=== PATIENT | female | born 1990 | race Caucasian/White ===

== ENCOUNTER 2017-10-15 14:59 | Emergency (ER) | payer OTHER ==
--- NOTE | 2017-10-15 15:42 | PDOC ---
History of Present Illness - General History Source: Patient Exam Limitations: No Limitations - History of Present Illness Initial Comments: 10/15/17 16:05 The patient is a 27 year old female with a significant PMH of chronic right shoulder pain, hypertension, hyperlipidemia, and colitis who presents to the emergency department after a dog bite on the right hand today. The patient describes the pain as moderate, persistent, and worse with movement. 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 The patient reports she has not had a recent tetanus shot. The patient denies any possibility for . The patient denies chest pain, shortness of breath, headache and dizziness. Denies fever, chills, nausea, vomit, diarrhea and constipation. Denies dysuria, frequency, urgency and hematuria. Allergies: NKA Past surgical history: None reported. Social history: No reported alcohol, drug or cigarette use. <Candace Ku - Last Filed: 10/15/17 17:20> <Alfredo Cabezas - Last Filed: 10/15/17 18:00> - General Chief Complaint: Bite Stated Complaint: DOG BITE OF RIGHT HAND Time Seen by Provider: 10/15/17 15:35 Past History <Candace Ku - Last Filed: 10/15/17 17:20> - Past Medical History COPD: No GI Disorders: Yes (COLITIS) HTN: Yes Hypercholesterolemia: Yes - Surgical History Abdominal Surgery: Yes (HERNIA) - Immunization History Td Vaccination: Yes Immunization Up to Date: Yes - Suicide/Smoking/Psychosocial Hx Smoking Status: No Smoking History: Never smoked Have you smoked in the past 12 months: No Number of Cigarettes Smoked Daily: 0 Hx Alcohol Use: No Drug/Substance Use Hx: No Substance Use Type: None <Alfredo Cabezas - Last Filed: 10/15/17 18:00> - Past Medical History Allergies/Adverse Reactions: Allergies Allergy/AdvReac Type Severity Reaction Status Date / Time No Known Allergies Allergy Verified 06/26/17 17:08 Home Medications: Ambulatory Orders Amoxicillin/Potassium Clav [Augmentin 875-125 Tablet] 1 each PO BID #20 tablet 10/15/17 Review of Systems - Review of Systems Able to Perform ROS?: Yes Comments:: 10/15/17 17:06 ROS: A complete review of 10 out of 10 review of systems is taken and is negative apart from what is previously mentioned below and in the HPI. <Candace Ku - Last Filed: 10/15/17 17:20> *Physical Exam - Physical Exam Comments: 10/15/17 17:06 Vitals: Triage vital signs reviewed General Appearance: No acute distress, well nourished, well developed Head: Atraumatic Neck: Supple; No nuchal rigidity Chest Wall: Nontender Cardiac: Regular rate and rhythm, no murmurs, no rubs, no gallops Lungs: Clear to auscultation bilateral, good air movement bilaterally Abdomen: Soft, nondistended, normal bowel sounds, nontender to palpation Extremities: Full range of motion to all extremities, no cyanosis, clubbing, or edema Skin: (+) Two .25cm lacerations on the dorsum and palmar above the wrist. Warm and dry, no rash, no petechiae Neuro: AOX3; Cranial Nerves 2-12 grossly intact, Strength intact to all extremities, Sensation intact to all extremities, gait normal Psych: Normal mood, normal affect <Candace Ku - Last Filed: 10/15/17 17:20> Medical Decision Making - Medical Decision Making 10/15/17 17:21 The patient is a 27 year old female with a significant PMH of chronic right shoulder pain, hypertension, hyperlipidemia, and colitis who presents to the emergency department after a dog bite on the right hand today. Plan Medications: Augmentin, Tetanus IM, Toradol Radiology: Right hand XR <Candace Ku - Last Filed: 10/15/17 17:20> - Medical Decision Making Right palm. No acute fracture dislocation noted on x-ray. Small abrasions thoroughly irrigated with 500 mL normal saline under high pressure. Patient started on Augmentin. Tetanus was updated. She was provided with Motrin and Tylenol for pain. She was advised to ice elevate keep covered with bacitracin twice a day and to follow-up with Dr. Gino conti in 1-2 days Findings, the need for follow-up, strict return instructions discussed with patient. <Alfredo Cabezas - Last Filed: 10/15/17 18:00> *DC/Admit/Observation/Transfer <Candace Ku - Last Filed: 10/15/17 17:20> - Discharge Dispostion Admit: No <Alfredo Cabezas - Last Filed: 10/15/17 18:00> Diagnosis at time of Disposition: Dog bite Qualifiers: Encounter type: initial encounter Qualified Code(s): W54.0XXA - Bitten by dog, initial encounter - Discharge Dispostion Condition at time of disposition: Good - Prescriptions Prescriptions: Amoxicillin/Potassium Clav [Augmentin 875-125 Tablet] 1 each PO BID #20 tablet - Referrals Referrals: Tierney Peacock MD [Primary Care Provider] - Jonnathan Weiss MD [Staff Physician] - - Patient Instructions Printed Discharge Instructions: How to Care for a Domestic Animal Bite Additional Instructions: Ice hand 20 minutes on 20 minutes off for the next 2-3 days. Keep elevated as much as possible. Apply bacitracin twice a day to the abrasions and keep covered with Band-Aid. Take Augmentin as prescribed. For pain alternate Tylenol Motrin as directed on package every 3 hours as needed for pain. In 1-2 days follow-up with hand surgery to have hand reevaluated. Return to the emergency department immediately for any redness that develops to hand any streaking red lines any severe worsening swelling any fever or for any concerns. - Post Discharge Activity Forms/Work/School Notes: Back to Work
[2017-10-15] MEDS ORDERED: DIPHTH,PERTUSS(ACELL),TET 0.5 ML DISP.SYRIN IM ONE (15:46)
[2017-10-15] MEDS ORDERED: KETOROLAC TROMETHAMINE 30 MG/1 ML VIAL IM ONE (15:46)
[2017-10-15] MEDS ORDERED: AMOX TR/POT CLAV 875MG/125MG TABLETS (FP) PO ONE (15:47)
[2017-10-15] MEDS ORDERED: KETOROLAC TROMETHAMINE 30 MG/1 ML VIAL ONE (15:56)
[2017-10-15] MEDS ORDERED: AMOX TR/POT CLAV 875MG/125MG TABLETS (FP) ONE (15:57)
[2017-10-15 16:11] VITALS: BP 148/99; PULSE 86; TEMP 98.2; BMI 35.7
== END 2017-10-15 18:05 | disposition home or self-care (01) ==
LOC: SUPCPDRO 14:59 → FER 14:59
PROC: 3E0234Z Introduction of Serum, Toxoid and Vaccine into Muscle, Percutaneous Approach (ICD-10-PCS; principal; 2017-10-15)
PROC: 3E0233Z Introduction of Anti-inflammatory into Muscle, Percutaneous Approach (ICD-10-PCS; 2017-10-15)
DX: S60.511A Abrasion of right hand, initial encounter (principal); S61.451A Open bite of right hand, initial encounter; W54.0XXA Bitten by dog, initial encounter; Y93.89 Activity, other specified; Y92.238 Other place in hospital as the place of occurrence of the external cause; Y99.0 Civilian activity done for income or pay
CPT/HCPCS: 73130-TC-RT-FY; 90715; 99281-25

== ENCOUNTER 2019-01-16 16:35 | Emergency (ER) | payer OTHER | END 2019-01-16 19:10 | disposition home or self-care (01) | LOC: JER 16:35 ==

== ENCOUNTER 2020-03-23 19:07 | Inpatient (IN) | payer OTHER ==
--- NOTE | 2020-03-23 20:00 | PDOC ---
History of Present Illness - General Chief Complaint: Blood Pressure Problem Stated Complaint: HIGH BP/COLD Time Seen by Provider: 03/23/20 19:59 Past History - Medical History Allergies/Adverse Reactions: Allergies Allergy/AdvReac Type Severity Reaction Status Date / Time No Known Allergies Allergy Verified 03/23/20 19:16 Home Medications: Ambulatory Orders Ethinyl Estradiol/Drospirenone [Ocella 3 mg-0.03 mg Tablet] 1 each PO DAILY 01/16/19 Metformin HCl [Glucophage] 500 mg PO BID 01/01/20 COPD: No GI Disorders: Yes (COLITIS) HTN: Yes Hypercholesterolemia: Yes - Surgical History Abdominal Surgery: Yes (HERNIA) - Reproductive History Is Patient Now?: No - Immunization History Td Vaccination: Yes Immunization Up to Date: Yes - Psycho-Social/Smoking History Smoking Status: No Smoking History: Never smoked Have you smoked in the past 12 months: No Number of Cigarettes Smoked Daily: 0 - Substance Abuse Hx (Audit-C & DAST Scrn) How often the patient has a drink containing alcohol: Never Score: In Men: 4 or > Positive; In Women: 3 or > Positive: 0 Screen Result (Pos requires Nsg. Audit-10AR): Negative *Physical Exam - Vital Signs Last Vital Signs Temp Pulse Resp BP Pulse Ox 98 F 77 18 151/94 97 03/23/20 19:13 03/23/20 19:13 03/23/20 19:13 03/23/20 19:13 03/23/20 19:13 ED Treatment Course - LABORATORY CBC & Chemistry Diagram: 03/23/20 21:15 03/23/20 21:15 Medical Decision Making - Medical Decision Making 03/23/20 20:00 HPI: 29yo F hx obesity and PCOS noncompliant with metformin not on OCPs per pt (per chart hx HTN, HLD, colitis, and slight anemia; pt denies all) employee here presents from work c/o acute onset at 6pm while working epigastric pressure type pain radiating to back worse with sitting up or movement better lying down associated with nausea and clamminess and generalized weakness. States BP is normally 120/80 but took BP upstairs 3 times and was 150/100 which never has been before. (Per chart review, last few visits BP has been 130s-140s/80s-90s). Last ate pizza at 3pm. Endorses similar episodes of pain x years intermittently but those pain episodes are worse and last a few days and are associated with N/V but not clamminess. No pain meds tried. Denies smoking, drugs. Rare alcohol use. Unknown FHx due to adoption. ROS: Constitutional: Positive for clamminess, chills. Negative for fever, fatigue, diaphoresis. HENT: Negative for sore throat, rhinorrhea, congestion. Eyes: Negative for visual disturbance. Respiratory: Negative for shortness of breath, cough, and wheezing. Cardiovascular: Negative for chest pain, palpitations, and leg swelling. Gastrointestinal: Positive for epigastric pain, nausea. Negative for blood in stool, constipation, diarrhea, and vomiting. Genitourinary: Negative for dysuria, flank pain, and hematuria. Musculoskeletal: Negative for myalgias, back pain, and neck pain. Skin: Negative for rash. Neurological: Negative for light-headedness, dizziness, vertigo, syncope, weakness, numbness and headaches. Psychiatric/Behavioral: Negative for behavioral problems and confusion. PE: Gen: Alert, NAD, comfortable-appearing, obese HEENT: PERRL, EOMI, MMM, NCAT. No conjunctival pallor. Sclera are non-icteric. CV: Regular rate and rhythm. No murmurs, rubs, or gallops. PULM: No resp distress. CTAB, no wheezes, rales, or rhonchi. ABD: protuberant, soft, +epigastric and RUQ TTP, ND, no rebound tenderness or guarding, no CVA tenderness. BACK: No TTP of c/t/l-spine. No step-offs or deformities. MSK: No bony deformities. 2+ pulses in all extremities. NEURO: AAOx3. PERRL. No gross CN deficits. Strength and sensation grossly intact throughout. EXTREMITIES: No cyanosis. No clubbing. No edema. PSYCH: Normal mood and thought pattern. SKIN: Warm and dry. Normal capillary refill. No rashes. No jaundice. MDM: 29yo F hx obesity and PCOS noncompliant with metformin not on OCPs per pt (per chart hx HTN, HLD, colitis, and slight anemia; pt denies all) employee here presents from work c/o acute onset at 6pm epigastric pressure type pain with nausea, similar to multiple prior episodes. Hypertensive 150/100, otherwise hemodynamically stable, afebrile, PE notable for epigastric and RUQ TTP. Ddx: likely cholelilithiasis vs gastritis/PUD. Also consider pancreatitis, ACS/TX, arrhythmia, hypoglycemia, metabolic derangement, anemia, PNA, , infection. HTN likely due to pain or essential HTN. -RUQ US -CXR -EKG -CBC,CMP,Lipase,Cardiac profile,HbA1c,preg -Ofirmev -Dispo: pending w/u 03/23/20 20:40 CXR reviewed: no acute pathology 03/23/20 22:46 Labs reviewed: no concerning findings USS reviewed: cholelithiasis without e/o cholecystitis or choledocholilithiasis EKG reviewed: normal sinus rhythm, 81bpm, normal axis, normal intervals, no TWIs, no ST elevations or depressions Still in pain Dr Donald consulted - admit for symptomatic cholelithiasis -NPO -Pre-op labs -COVID -IVF -2 morphine Admit med/surg Discharge - Discharge Information Problems reviewed: Yes Clinical Impression/Diagnosis: Symptomatic cholelithiasis Condition: Stable - Admission Yes - Follow up/Referral - Patient Discharge Instructions - Post Discharge Activity
[2020-03-23] MEDS ORDERED: ACETAMINOPHEN 1000 MG/100 ML VIAL (NON FORMULARY) IVPB ONE (20:18)
[2020-03-23] MEDS ORDERED: ACETAMINOPHEN INJECTION 100 ML IVPB ONE (20:57)
[2020-03-23 21:46] LABS: BASO % 0.2 % (0-2.0); EOS % 0.8 % (0-4.5); HEMATOCRIT 36.3 % (32.4-45.2); HEMOGLOBIN 12.2 GM/dL (10.7-15.3); LYMPH % 24.2 % (8-40); MCH 29.6 pg (25.7-33.7); MCHC 33.6 g/dl (32.0-36.0); MEAN CELL VOLUME 88.1 fl (80-96); MEAN PLT VOLUME 9.2 fl (7.5-11.1); MONO % 5.3 % (3.8-10.2); NEUT % 69.5 % (42.8-82.8); PLATELET COUNT 226 K/MM3 (134-434); RBC 4.13 M/mm3 (3.60-5.2); RDW 13.5 % (11.6-15.6); WHITE BLOOD COUNT 9.3 K/mm3 (4.0-10.0)
[2020-03-23 22:04] LABS: ALBUMIN 3.7 g/dl (3.4-5.0); ALK PHOS 80 U/L (45-117); ANION GAP 6 MMOL/L (8-16); BILIRUBIN,TOTAL 0.7 mg/dL (0.2-1); BLOOD UREA NITROGEN 14.9 mg/dL (7-18); CALCIUM 9.4 mg/dL (8.5-10.1); CHLORIDE 105 mmol/L (98-107); CO2 29 mmol/L (21-32); CREATININE 0.8 mg/dL (0.55-1.3); GLUCOSE,RANDOM 110 mg/dL (74-106); LIPASE 81 U/L (73-393); POTASSIUM 4.1 mmol/L (3.5-5.1); SGOT/AST 61 U/L (15-37); SGPT/ALT 57 U/L (13-61); SODIUM 140 mmol/L (136-145); TOT PROT 7.4 g/dl (6.4-8.2)
[2020-03-23] MEDS ORDERED: morphine CARPU-JECT 2 MG/1 ML DISP.SYRIN IVPUSH ONE (22:48)
[2020-03-23] MEDS ORDERED: MORPHINE SULFATE 2 MG/ML VIAL ONE (22:59)
[2020-03-23] MEDS: SODIUM CHLORIDE 1,000 ML IV SCH (23:13)
[2020-03-23] MEDS ORDERED: FAMOTIDINE 20 MG/50 ML IVPB 20 MG/50 ML MG IVPB ONE ×2 (23:14→23:21)
--- NOTE | 2020-03-23 23:19 | PN ---
Teaching Attending Note Name of Resident: Bruno Benavidez ATTENDING PHYSICIAN STATEMENT I saw and evaluated the patient. I reviewed the resident's note and discussed the case with the resident. I agree with the resident's findings and plan as documented. SUBJECTIVE: Patient is a 29 year old woman - [employer] employee - with a PMH of Obesity, ?Anemia, Positive COVID-19 IgG antibody on 01/23/2020, PCOS (nonadherent with Metformin), Right shoulder pain, Hypertension, Hyperlipidemia and Colitis who presents to the ER with sudden onset of epigastric pain that began 2 hours prior to arrival. She notes this pain is exacerbated by sitting up or movement and improved with lying down. The patient reports her baseline BP is normally 120/80 but was measured at 150/100 when it was taken upstairs. Her last meal was Pizza 5 hours ago. She reports similar episodes of pain for the past few years in which the pain is worse than it is now, remains for a few days, and is associated with nausea and vomiting. Currently on her period and they are irregular. Patient denies chest/back pain, cough or shortness of breath. Denies fever, chills, nausea, vomiting, palpitations, dizziness, diarrhea, constipation, dysuria, frequency, urgency, melena, hematochezia or hematuria. Denies alcohol, tobacco or illicit drug use. No sick contacts or recent travels. Family history is unremarkable. OBJECTIVE: Alert Vital Signs Period Temp Pulse Resp BP Sys/Griggs Pulse Ox Last 24 Hr 98 F 77 18 151/94 97 HEENT: No Jaundice, eye redness or discharge, PERRLA, EOMI. Normocephalic, atraumatic. External ears are normal and hearing is grossly intact. No nasal discharge. Neck: Supple, nontender. No palpable adenopathy or thyromegaly. No JVD Chest: Good effort. Clear to auscultation and percussion. Heart: Regular. No S3, rub or murmur Abdomen: Not distended, soft, nontender and no HSM. No rebound or guarding. Normal bowel sounds. Ext: Peripheral pulses intact. No leg edema. Skin: Warm and dry. No petechiae, rash or ecchymosis. Neuro: Alert. Oriented x3. CN 2-12 grossly intact. Sensation grossly intact in all four extremities and DTR are symmetric. Psych: Appropriate mood and affect. Good insight. Home Medications Medication Instructions Recorded Ethinyl Estradiol/Drospirenone 1 each PO DAILY 01/16/19 [Ocella 3 mg-0.03 mg Tablet] Metformin HCl [Glucophage] 500 mg PO BID 01/01/20 Abnormal Lab Results 03/23/20 21:15 Anion Gap 6 L Random Glucose 110 H AST 61 H Current Medications Generic Name Dose Route Start Last Admin Trade Name Freq PRN Reason Stop Dose Admin Acetaminophen 1,000 mg 03/24/20 02:43 Ofirmev Injection - IVPB 03/25/20 02:43 Q6H PRN PAIN LEVEL 4 - 6 Sodium Chloride 1,000 mls @ 125 mls/hr 03/23/20 22:45 03/23/20 23:13 Normal Saline - IV 125 mls/hr ASDIR CORBY Administration Melatonin 10 mg 03/24/20 02:46 Melatonin PO 03/24/20 02:47 ONCE ONE Morphine Sulfate 1 mg 03/24/20 02:43 Morphine Injection - IVPUSH Q4H PRN PAIN LEVEL 6-10 Pantoprazole Sodium 40 mg 03/24/20 10:00 Protonix - PO DAILY CORBY ASSESSMENT AND PLAN: 1. Abdominal pain/Cholelithiasis - Sonogram shows cholelithiasis and fatty liver. ER staff prescribed Tylenol, Mylanta, Pepcid, IV Morphine and IV NS for the patient. No acute abnormality on CXR. Will keep her NPO, give IV LR, IV Protonix, get MRCP, PT/INR, use IV Morphine for pain control, get urinalysis and consult GI. EKG shows NSR at 81/minute and QTc [address]-T wave changes. Not significantly changed compared to prior EKG. No old EKG available for comparison. Initial troponin is negative. Will avoid drugs that may prolong QTc. Viral testing for COVID-19 ordered and patient placed on airborne, droplet and contact isolation. Will continue comprehensive care for all of patients comorbid conditions. 2. Obesity Counseled on the risks associated with obesity. Will provide patient all the necessary assistance, counseling and positive reinforcement to facilitate weight loss. Consult flavor extractor. 3. Hypertension Will monitor BP closely to decide if she needs antihypertensive drugs upon discharge. Subsequently, will revise regimen to ensure [id number] excellent BP control. Patient counseled on the injurious effects of uncontrolled hypertension. Nonpharmacologic measures to control hypertension like weight loss, salt restriction and exercise stressed. Im portance of adherence to treatment regimen and attainment of normotension emphasized. 4. DVT prophylaxis - Lovenox 40 mg SQ q 24 hours. 5. Advance directives - Full code
[2020-03-23 23:25] LABS: INR 0.89 (0.83-1.09); PROTHROMBIN TIME (PATIENT) 10.5 SEC (9.7-13.0)
[2020-03-23 23:28] LABS: ACTIVATED PTT 31.2 SECONDS (25.2-36.5)
--- NOTE | 2020-03-23 23:40 | PDOC ---
Documentation entered by Saman Reyes SCRIBE, acting as scribe for Sunni Saenz MD. Sunni Saenz MD: This documentation has been prepared by the samantaibe, Saman Reyes SCRIBE, under my direction and personally reviewed by me in its entirety. I confirm that the documentation accurately reflects all work, treatment, procedures, and medical decision making performed by me. 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 She notes this pain is exacerbated by sitting up or movement and improved with lying down. The patient reports her baseline BP is normally 120/80 but was measured at 150/100 when it was taken upstairs. Her last meal was pizza 5 hours ago. She reports similar episodes of pain for the past few years in which the pain is worse than it is now, remains for a few days, and is associated with nausea and vomiting. The patient denies chest/back pain, cough, and shortness of breath. Denies fever, chills, nausea, vomiting. Denies any other symptoms. Allergies: NKDA Social history: No reported alcohol, drug or cigarette use. - Physicial Exam PE: 03/23/20 20:15 GENERAL: Awake, alert, and fully oriented, in no acute distress HEAD: No signs of trauma EYES: PERRLA, EOMI, sclera anicteric, conjunctiva clear ENT: Auricles normal inspection, hearing grossly normal, nares patent, oropharynx clear without exudates. Moist mucosa NECK: Normal ROM, supple, no lymphadenopathy, JVD, or masses LUNGS: Breath sounds equal, clear to auscultation bilaterally. No wheezes, and no crackles HEART: Regular rate and rhythm, normal S1 and S2, no murmurs, rubs or gallops ABDOMEN: Soft, +RUQ tenderness to deep palpation, normoactive bowel sounds. No guarding, no rebound. No masses EXTREMITIES: Normal range of motion, no edema. No clubbing or cyanosis. No cords, erythema, or tenderness NEUROLOGICAL: Cranial nerves II through XII grossly intact. Normal speech, normal gait SKIN: Warm, Dry, normal turgor, no rashes or lesions noted. - Medical Decision Making Case d/w Dr. Donald by resident physician, recommended admission for cholecystectomy. COVID-19 swab sent to lab. Discharge - Discharge Information Problems reviewed: Yes Clinical Impression/Diagnosis: Symptomatic cholelithiasis Condition: Stable - Follow up/Referral - Patient Discharge Instructions - Post Discharge Activity
[2020-03-24] MEDS ORDERED: ACETAMINOPHEN 1000 MG/100 ML VIAL (NON FORMULARY) IVPB PRN (02:43)
[2020-03-24] MEDS ORDERED: MELATONIN 5 MG TABLETS PO ONE ×2 (03:05→05:04)
[2020-03-24] MEDS: MORPHINE SULFATE 2 MG/ML VIAL IVPUSH PRN ×2 (03:32→09:00)
[2020-03-24 05:00] VITALS: BMI 38.7
[2020-03-24 06:36] LABS: BASO % 0.3 % (0-2.0); EOS % 0.7 % (0-4.5); HEMATOCRIT 32.7 % (32.4-45.2); LYMPH % 28.2 % (8-40); MCH 29.3 pg (25.7-33.7); MCHC 33.5 g/dl (32.0-36.0); MEAN CELL VOLUME 87.5 fl (80-96); MEAN PLT VOLUME 9.2 fl (7.5-11.1); MONO % 7.8 % (3.8-10.2); PLATELET COUNT 196 K/MM3 (134-434); RBC 3.74 M/mm3 (3.60-5.2); RDW 13.4 % (11.6-15.6); WHITE BLOOD COUNT 5.4 K/mm3 (4.0-10.0)
[2020-03-24 06:51] LABS: INR 0.92 (0.83-1.09); PROTHROMBIN TIME (PATIENT) 10.8 SEC (9.7-13.0)
[2020-03-24 06:53] LABS: ACTIVATED PTT 29.5 SECONDS (25.2-36.5)
[2020-03-24] MEDS ORDERED: PANTOPRAZOLE 40 MG TABLET PO SCH (07:00)
[2020-03-24 07:02] LABS: ALBUMIN 3.4 g/dl (3.4-5.0); BILIRUBIN,TOTAL 1.9 mg/dL (0.2-1); BLOOD UREA NITROGEN 13.8 mg/dL (7-18); CREATININE 0.8 mg/dL (0.55-1.3); MAGNESIUM 1.8 mg/dL (1.8-2.4); PHOSPHOROUS 3.5 mg/dL (2.5-4.9); TOT PROT 6.4 g/dl (6.4-8.2)
--- NOTE | 2020-03-24 07:50 | HP ---
CHIEF COMPLAINT: epigastric pain after eating pizza PCP: none HISTORY OF PRESENT ILLNESS: 29yo F with PMHx of PCOS (currently not taking metformin), CRISTO who presents with severe mid-epigastric and RUQ pain. She had some pizza today around 3pm then the severe pain started around 5pm. She explained that within the last year, she has experienced this multiple times, but it was never as severe as this time. She also often has acid reflux, for which she takes occasionally tums. As associated symptoms she experienced "claminess" and chills with the pain, but those symptoms would resolved when the pain eased up. She denied other symptoms such as headaches, dizziness, SOB, CP, fever, VD. She is a [employer] employee. COVID AgG Ab positive on January 22, COVID today pending. Patient denied ever being diagnosed with HTN, HLD, DM, or colitis. 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 Home: lives with parents and brother Allergies No Known Allergies Allergy (Verified 03/23/20 19:16) HOME MEDICATIONS: Home Medications Medication Instructions Recorded Ethinyl Estradiol/Drospirenone 1 each PO DAILY 01/16/19 [Ocella 3 mg-0.03 mg Tablet] Metformin HCl [Glucophage] 500 mg PO BID 01/01/20 REVIEW OF SYSTEMS as stated above PHYSICAL EXAMINATION Vital Signs - 24 hr 03/23/20 03/23/20 03/23/20 19:13 23:05 23:45 Temperature 98 F 98.1 F Pulse Rate 77 69 Pulse Rate [ 67 Right Radial] Respiratory 18 20 18 Rate Blood Pressure 151/94 114/71 Blood Pressure 138/93 [Left Arm] O2 Sat by Pulse 97 100 100 Oximetry (%) 03/24/20 03/24/20 03:00 06:52 Temperature 97.8 F 97.4 F L Pulse Rate 73 72 Pulse Rate [ Right Radial] Respiratory 18 17 Rate Blood Pressure 137/86 113/73 Blood Pressure [Left Arm] O2 Sat by Pulse 96 97 Oximetry (%) GENERAL: female, appears stated age, overweight, wearing maroon scrub s, AAOx3, appears nervous, in mild distress HEAD: Normal with no signs of trauma EYES: PERRL, direct and consensual pupillary reflex intact, extraocular movements intact NECK: no lymphadenopathy noted LUNGS: CTAB, no wheezing appreciated HEART: RRR, S1 and S2 with no other hear sounds appreciated ABDOMEN: distended and soft, mildly tender to palpation in mid-epigastrium and RUQ on deep palpation, LLQ nontender MUSCULOSKELETAL: full range of motion, ambulates well UPPER EXTREMITIES: radial pulses palpable, no edema LOWER EXTREMITIES: dorsalis pedis pulses palpable, no pitting edema NEUROLOGICAL: Cranial nerves II-XII grosssly intact. Normal speech. Normal gait. PSYCHIATRIC: Cooperative, talkative. Good eye contact. Appropriate mood and affect, nervous SKIN: Warm, no other rashes or lesions noted Laboratory Results - last 24 hr 03/23/20 03/23/20 03/23/20 21:15 21:15 21:15 WBC 9.3 RBC 4.13 Hgb 12.2 Hct 36.3 MCV 88.1 MCH 29.6 MCHC 33.6 RDW 13.5 Plt Count 226 MPV 9.2 Absolute Neuts (auto) 6.5 Neutrophils % 69.5 Lymphocytes % 24.2 D Monocytes % 5.3 Eosinophils % 0.8 Basophils % 0.2 Nucleated RBC % 0 PT with INR INR PTT (Actin FS) Sodium 140 Potassium 4.1 Chloride 105 Carbon Dioxide 29 Anion Gap 6 L BUN 14.9 Creatinine 0.8 Est GFR (CKD-EPI)AfAm 114.66 Est GFR (CKD-EPI)NonAf 98.93 POC Glucometer Random Glucose 110 H Hemoglobin A1c % Calcium 9.4 Phosphorus Magnesium Total Bilirubin 0.7 AST 61 H ALT 57 Alkaline Phosphatase 80 Creatine Kinase 163 Creatine Kinase Index No Result Required. CK-MB (CK-2) < 1.0 Troponin I < 0.02 Total Protein 7.4 Albumin 3.7 Lipase 81 Serum , Qual Negative Blood Type Antibody Screen Antibody Identification Antigen Identification 03/23/20 03/23/20 03/23/20 21:15 21:20 22:55 WBC RBC Hgb Hct MCV MCH MCHC RDW Plt Count MPV Absolute Neuts (auto) Neutrophils % Lymphocytes % Monocytes % Eosinophils % Basophils % Nucleated RBC % PT with INR 10.50 INR 0.89 PTT (Actin FS) 31.2 Sodium Potassium Chloride Carbon Dioxide Anion Gap BUN Creatinine Est GFR (CKD-EPI)AfAm Est GFR (CKD-EPI)NonAf POC Glucometer 115 Random Glucose Hemoglobin A1c % 5.3 Calcium Phosphorus Magnesium Total Bilirubin AST ALT Alkaline Phosphatase Creatine Kinase Creatine Kinase Index CK-MB (CK-2) Troponin I Total Protein Albumin Lipase Serum , Qual Blood Type Antibody Screen Antibody Identification Antigen Identification 03/23/20 03/24/20 03/24/20 22:55 05:50 05:50 WBC 5.4 RBC 3.74 Hgb 11.0 Hct 32.7 MCV 87.5 MCH 29.3 MCHC 33.5 RDW 13.4 Plt Count 196 MPV 9.2 Absolute Neuts (auto) 3.4 Neutrophils % 63.0 Lymphocytes % 28.2 Monocytes % 7.8 Eosinophils % 0.7 Basophils % 0.3 Nucleated RBC % 0 PT with INR 10.80 INR 0.92 PTT (Actin FS) 29.5 Sodium Potassium Chloride Carbon Dioxide Anion Gap BUN Creatinine Est GFR (CKD-EPI)AfAm Est GFR (CKD-EPI)NonAf POC Glucometer Random Glucose Hemoglobin A1c % Calcium Phosphorus Magnesium Total Bilirubin AST ALT Alkaline Phosphatase Creatine Kinase Creatine Kinase Index CK-MB (CK-2) Troponin I Total Protein Albumin Lipase Serum , Qual Blood Type A NEGATIVE Antibody Screen Positive Antibody Identification No Result Required. Antigen Identification No Result Required. 03/24/20 05:50 WBC RBC Hgb Hct MCV MCH MCHC RDW Plt Count MPV Absolute Neuts (auto) Neutrophils % Lymphocytes % Monocytes % Eosinophils % Basophils % Nucleated RBC % PT with INR INR PTT (Actin FS) Sodium 141 Potassium 4.0 Chloride 110 H Carbon Dioxide 21 Anion Gap 11 BUN 13.8 Creatinine 0.8 Est GFR (CKD-EPI)AfAm 114.66 Est GFR (CKD-EPI)NonAf 98.93 POC Glucometer Random Glucose 104 Hemoglobin A1c % Calcium 8.0 L Phosphorus 3.5 Magnesium 1.8 Total Bilirubin 1.9 H AST 411 H ALT 304 H Alkaline Phosphatase 82 Creatine Kinase Creatine Kinase Index CK-MB (CK-2) Troponin I Total Protein 6.4 Albumin 3.4 Lipase Serum , Qual Blood Type Antibody Screen Antibody Identification Antigen Identification ASSESSMENT/PLAN: 29yo F with PMHx of PCOS (currently not taking metformin), CRISTO who presents with severe midepigastric and RUQ pain. Limited US showed cholelithiasis for which she is admitted. #Epigastric pain 2/2 cholelithiasis - continue morphine and ofirmev for pain - GI consult - MRCP? - UA - PT / INR - 125 cc/h IVF - surgery consulted - ID consulted #CRISTO - start pantoprazole 40 - continue famotidine #FEN - 125cc/h NS - replete lytes PRN - NPO #PPX - DVT: SCDs #Dispo: continue monitoring in [facility] Family Medical History Family History: As Documented Visit type - Emergency Visit Emergency Visit: Yes ED Registration Date: 03/23/20 Care time: The patient presented to the Emergency Department on the above date and was hospitalized for further evaluation of their emergent condition. - New Patient This patient is new to me today: Yes Date on this admission: 03/25/20 - Critical Care Critical Care patient: No ATTENDING PHYSICIAN STATEMENT I saw and evaluated the patient. I reviewed the resident's note and discussed the case with the resident. I agree with the resident's findings and plan as documented. SUBJECTIVE: OBJECTIVE: ASSESSMENT AND PLAN:
[2020-03-24] MEDS ORDERED: PIPERACILLIN/TAZOB 3.375 GM 3.375 GM in DEXTROSE 5%-WATER - 50 ML IVPB SCH ×2 (08:00→08:15)
[2020-03-24] MEDS ORDERED: DEXTROSE 5%-WATER - 50 ML IVPB ONE ×2 (08:22→16:55)
[2020-03-24] MEDS ORDERED: PIPERACILLIN/TAZOBACTAM 3.375 GM VIAL IVPB ONE ×2 (08:22→16:55)
[2020-03-24] MEDS: SODIUM CHLORIDE 1,000 ML IV SCH ×2 (08:25→20:21)
[2020-03-24] MEDS: PANTOPRAZOLE SODIUM 40 MG VIAL IVPUSH SCH ×2 (08:27→10:26)
--- NOTE | 2020-03-24 10:02 | CONSULT ---
- Consultation REQUESTING PROVIDER: Hanh Anaya MD CONSULT REQUEST: We have been asked to surgically evaluate this patient for epigastric and RUQ abdominal pain. PCP:Chad Gates MD HISTORY OF PRESENT ILLNESS: PMHx: PCO PSHx: none Home Medications Medication Instructions Recorded Ethinyl Estradiol/Drospirenone 1 each PO DAILY 01/16/19 [Ocella 3 mg-0.03 mg Tablet] Metformin HCl [Glucophage] 500 mg PO BID 01/01/20 Allergies Allergy/AdvReac Type Severity Reaction Status Date / Time No Known Allergies Allergy Verified 03/23/20 19:16 REVIEW OF SYSTEMS: CONSTITUTIONAL: Absent: fever, chills, diaphoresis, generalized weakness, malaise, loss of appetite, weight change CARDIOVASCULAR: Absent: chest pain, syncope, palpitations, irregular heart rate, lightheadedness, peripheral edema RESPIRATORY: Absent: cough, shortness of breath, dyspnea with exertion, wheezing, stridor, hemoptysis GASTROINTESTINAL: Absent: abdominal pain, abdominal distension, nausea, vomiting, reflux. Absent: diarrhea, constipation, melena, hematochezia GENITOURINARY: Absent: dysuria, frequency, urgency, hesitancy, hematuria, flank pain, genital pain MUSCULOSKELETAL: Absent: myalgia, arthralgia, joint swelling, back pain, neck pain SKIN: Absent: rash, itching, pallor HEMATOLOGIC/IMMUNOLOGIC: Absent: easy bleeding, easy bruising, lymphadenopathy NEUROLOGIC: Absent: headache, focal weakness, paresthesias, dizziness, unsteady gait, seizure, mental status changes, bladder or bowel incontinence PSYCHIATRIC: Absent: anxiety, depression, suicidal or homicidal ideation, hallucinations. PHYSICAL EXAM: GENERAL: Awake, alert, and fully oriented, in no acute distress. HEAD: Normal with no signs of trauma. EYES: PERRL, sclera anicteric, conjunctiva clear. NECK: Normal ROM, supple without lymphadenopathy, JVD, or masses. ABDOMEN: Soft, nontender, not distended, normoactive bowel sounds, no guarding, no rebound, no masses. No organomegaly. No hernias. No scars. MUSCULOSKELETAL: Normal ROM at all joints. No bony deformities or tenderness. No CVA tenderness. UPPER EXTREMITIES: 2+ pulses, warm, well-perfused. No cyanosis. Cap refill <2 seconds. No peripheral edema. LOWER EXTREMITIES: 2+ pulses, warm, well-perfused. No calf tenderness. No peripheral edema. NEUROLOGICAL: Normal speech, gait not observed. PSYCH: Cooperative. Good eye contact. Appropriate mood and affect. SKIN: Warm, dry, normal turgor, no rashes or lesions noted. Vital Signs Temperature 98.4 F 03/24/20 09:21 Pulse Rate 74 03/24/20 09:21 Respiratory Rate 18 03/24/20 09:21 Blood Pressure 132/89 03/24/20 09:21 O2 Sat by Pulse Oximetry (%) 99 03/24/20 09:21 Lab Results WBC 5.4 K/mm3 (4.0-10.0) 03/24/20 05:50 RBC 3.74 M/mm3 (3.60-5.2) 03/24/20 05:50 Hgb 11.0 GM/dL (10.7-15.3) 03/24/20 05:50 Hct 32.7 % (32.4-45.2) 03/24/20 05:50 MCV 87.5 fl (80-96) 03/24/20 05:50 MCHC 33.5 g/dl (32.0-36.0) 03/24/20 05:50 RDW 13.4 % (11.6-15.6) 03/24/20 05:50 Plt Count 196 K/MM3 (134-434) 03/24/20 05:50 INR 0.92 (0.83-1.09) 03/24/20 05:50 Sodium 141 mmol/L (136-145) 03/24/20 05:50 Potassium 4.0 mmol/L (3.5-5.1) 03/24/20 05:50 Chloride 110 mmol/L (98-107) H 03/24/20 05:50 Carbon Dioxide 21 mmol/L (21-32) 03/24/20 05:50 Anion Gap 11 MMOL/L (8-16) 03/24/20 05:50 BUN 13.8 mg/dL (7-18) 03/24/20 05:50 Creatinine 0.8 mg/dL (0.55-1.3) 03/24/20 05:50 Random Glucose 104 mg/dL (74-106) 03/24/20 05:50 Calcium 8.0 mg/dL (8.5-10.1) L 03/24/20 05:50 Blood Type A NEGATIVE 03/23/20 22:55 Antibody Screen Positive 03/23/20 22:55 US reviewed IMP: biliary colic; cholelithiasis w/o evidence of acute cholecystitis PLAN: Keep NPO/IVF; trend LFT's which were not indicative of choledocholithiasis initially; may need pre-op MRCP; will f/u. Mushtaq Donald MD FACS
[2020-03-24] MEDS: PIPERACILLIN/TAZOB 3.375 GM 3.375 GM in DEXTROSE 5%-WATER - 50 ML IVPB SCH ×2 (10:26→17:09)
--- NOTE | 2020-03-24 11:12 | CON.GI ---
Consult Consult Specialty:: GI Referred by:: Hospitalist service Reason for Consultation:: biliary colic, elevated LFTs - History of Present Illness Chief Complaint: Abdominal pain x 1 day History of Present Illness: 29 y.o. obese F with sudden onset of epigastric pain and chills. Sonogram showed cholelithiasis, minimally abnormal AST. Today pt still requiring morphine, feels better, no feve, but bilirubin up to 1.9, AST/ALT in 300-400 range. Alk phos has been normal as has WBC.CXR CBC,CMP WBC 5.4 K/mm3 (4.0-10.0) 03/24/20 05:50 RBC 3.74 M/mm3 (3.60-5.2) 03/24/20 05:50 Hgb 11.0 GM/dL (10.7-15.3) 03/24/20 05:50 Hct 32.7 % (32.4-45.2) 03/24/20 05:50 MCV 87.5 fl (80-96) 03/24/20 05:50 MCH 29.3 pg (25.7-33.7) 03/24/20 05:50 MCHC 33.5 g/dl (32.0-36.0) 03/24/20 05:50 RDW 13.4 % (11.6-15.6) 03/24/20 05:50 Plt Count 196 K/MM3 (134-434) 03/24/20 05:50 MPV 9.2 fl (7.5-11.1) 03/24/20 05:50 Absolute Neuts (auto) 3.4 K/mm3 (1.5-8.0) 03/24/20 05:50 Neutrophils % 63.0 % (42.8-82.8) 03/24/20 05:50 Lymphocytes % 28.2 % (8-40) 03/24/20 05:50 Monocytes % 7.8 % (3.8-10.2) 03/24/20 05:50 Eosinophils % 0.7 % (0-4.5) 03/24/20 05:50 Basophils % 0.3 % (0-2.0) 03/24/20 05:50 Nucleated RBC % 0 % (0-0) 03/24/20 05:50 Sodium 141 mmol/L (136-145) 03/24/20 05:50 Potassium 4.0 mmol/L (3.5-5.1) 03/24/20 05:50 Chloride 110 mmol/L (98-107) H 03/24/20 05:50 Carbon Dioxide 21 mmol/L (21-32) 03/24/20 05:50 Anion Gap 11 MMOL/L (8-16) 03/24/20 05:50 BUN 13.8 mg/dL (7-18) 03/24/20 05:50 Creatinine 0.8 mg/dL (0.55-1.3) 03/24/20 05:50 Est GFR (CKD-EPI)AfAm 114.66 03/24/20 05:50 Est GFR (CKD-EPI)NonAf 98.93 03/24/20 05:50 POC Glucometer 115 UNITS (80-120) 03/23/20 21:20 Random Glucose 104 mg/dL (74-106) 03/24/20 05:50 Hemoglobin A1c % 5.3 % (4.2-6.3) 03/23/20 21:15 Calcium 8.0 mg/dL (8.5-10.1) L 03/24/20 05:50 Phosphorus 3.5 mg/dL (2.5-4.9) 03/24/20 05:50 Magnesium 1.8 mg/dL (1.8-2.4) 03/24/20 05:50 Total Bilirubin 1.9 mg/dL (0.2-1) H 03/24/20 05:50 AST 411 U/L (15-37) H 03/24/20 05:50 ALT 304 U/L (13-61) H 03/24/20 05:50 Alkaline Phosphatase 82 U/L (45-117) 03/24/20 05:50 Creatine Kinase 163 U/L (26-192) 03/23/20 21:15 Creatine Kinase Index No Result Required. 03/23/20 21:15 CK-MB (CK-2) < 1.0 ng/mL (0.5-3.6) 03/23/20 21:15 Troponin I < 0.02 ng/ml (0.00-0.05) 03/23/20 21:15 Total Protein 6.4 g/dl (6.4-8.2) 03/24/20 05:50 Albumin 3.4 g/dl (3.4-5.0) 03/24/20 05:50 Lipase 81 U/L (73-393) 03/23/20 21:15 Serum , Qual Negative 03/23/20 21:15 CXR shows a possible R. hilar infiltrate. Pt denies any respiratory symptoms. She tested positive for SARS2 antibodies in January. - History Source History Provided By: Patient, Medical Record Limitations to Obtaining History: No Limitations - Past Medical History ...LMP: 03/22/20 ...LMP Comment: irregular ...: No - Alcohol/Substance Use Hx Alcohol Use: No - Smoking History Smoking history: Never smoked Have you smoked in the past 12 months: No Aproximately how many cigarettes per day: 0 Home Medications - Allergies Allergies/Adverse Reactions: Allergies Allergy/AdvReac Type Severity Reaction Status Date / Time No Known Allergies Allergy Verified 03/23/20 19:16 - Home Medications Home Medications: Ambulatory Orders Ethinyl Estradiol/Drospirenone [Ocella 3 mg-0.03 mg Tablet] 1 each PO DAILY 01/16/19 Metformin HCl [Glucophage] 500 mg PO BID 01/01/20 Physical Exam-GI Vital Signs: Vital Signs Temperature 98.4 F 03/24/20 09:21 Pulse Rate 74 03/24/20 09:21 Respiratory Rate 18 03/24/20 09:21 Blood Pressure 132/89 03/24/20 09:21 O2 Sat by Pulse Oximetry (%) 99 03/24/20 09:21 Constitutional: Yes: Obese Eyes: Yes: WNL ...Palpate: Yes: Soft Labs: CBC, BMP 03/24/20 05:50 03/24/20 05:50 INR, PTT INR 0.92 (0.83-1.09) 03/24/20 05:50 Imaging - Results Chest X-ray: Report Reviewed, Image Reviewed Ultrasound: Report Reviewed, Image Reviewed Problem List - Problems (1) Symptomatic cholelithiasis Code(s): K80.20 - CALCULUS OF GALLBLADDER W/O CHOLECYSTITIS W/O OBSTRUCTION Assessment/Plan The rise in bili, AST and ALT may indicate a CBD stone, or may just be a r eaction to cholecystitis. Acute hepatitis less likely, given the sudden onset of pain. Normally I would anticipate a rise in alk phos along with AST, ALT and bilirubin. MRCP has been ordered to exclude CBD stone; if one is present, pt will need ERCP.
--- NOTE | 2020-03-24 12:09 | PN ---
Progress Note (short form) - Note Progress Note: ID CONSULT DICTATED R/O ACUTE CHOLECYSTITIS ? R PERIHILAR INFILTRATE RECENT + SEROLOGY COVID-19 ASYMPTOMATIC OBTAIN BC FOR MRCP EMPIRIC ZOSYN
[2020-03-24 12:48] LABS: EPI CELLS 8 /uL (0-25.1); HYALINE CASTS 1 /uL (0-3.1); PH,URINE 5.5 (5.0-8.0); URINE APPEARANCE CLEAR; URINE BILIRUBIN 1+ (NEGATIVE); URINE COLOR DK YELLOW; URINE GLUCOSE (UA) NEGATIVE (NEGATIVE); URINE KETONE NEGATIVE (NEGATIVE); URINE LEUK ESTERASE NEGATIVE (NEGATIVE); URINE NITRITE POSITIVE (NEGATIVE); URINE PROTEIN NEGATIVE (NEGATIVE); URINE RBC 32 /uL (0-23.9); URINE UROBILINOGEN 0.2 mg/dL (0.2-1.0); URINE WBC 17 /uL (0-25.8)
--- NOTE | 2020-03-24 12:50 | CONS ---
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 The patient was at work in the evening when she developed abrupt onset of right upper quadrant and epigastric abdominal pain. The pain radiated to the back area. She had a sonogram performed which showed cholelithiasis without evidence of dilated ducts. She was admitted to the hospital with presumed acute cholecystitis. Her course has now been complicated by elevated liver enzymes. She was seen in consultation by GI and Surgery. An MRCP is planned to rule out common bile duct stone. At the present time she is awake. She has received analgesics and is not complaining of abdominal pain. She denies any nausea, vomiting. Reports having a bowel movement. No associated fever or chills. On admission, chest x-ray showed a right infrahilar density of unclear etiology. The patient reports that in January of this year her father was diagnosed with COVID-19. She self-quarantined. She did not have a PCR at that time; however, serology returned positive for IgG. She remained asymptomatic. PAST MEDICAL HISTORY: Positive for diabetes mellitus, polycystic ovary, hypertension, hyperlipidemia. ALLERGIES: No known allergies. MEDICATIONS: Include Zosyn, Tylenol, morphine, Pepcid, Protonix, melatonin. SOCIAL HISTORY: She works as a nurse's aide. She is a nonsmoker, nondrinker. No recent travel. COVID exposure as per HPI. REVIEW OF SYSTEMS: Neurologic: No loss of consciousness, seizure activity, focal weakness. Cardiac: Negative chest pain or palpitations. Respiratory: Negative cough or sputum production. Gastrointestinal: As per HPI. Genitourinary: Negative for urinary tract infection. LABORATORY DATA: White count 5.4, 63 neutrophils, 28 lymphocytes, 7 monocytes. Hematocrit 32.7, platelet count 196, creatinine 0.8, total bilirubin 1.9, alkaline phosphatase 82, AST 411, ALT 304. Blood culture is negative. Imaging as described. COVID-19 PCR pending. PHYSICAL EXAMINATION: General: She is awake. She is in no acute distress, supine in bed, obese. Vital Signs: Temperature 98.4, blood pressure 132/89, pulse 74, regular. Respirations 18 per minute. HEENT: Sclerae are anicteric. Cardiovascular: Heart sounds S1, S2. Lungs: Clear. Abdomen: Obese, soft. No suprapubic tenderness to palpation. No rebound or rigidity. Negative Boone sign. Extremities: Negative for edema. IMPRESSION: 1. Rule out acute cholecystitis. 2. Symptomatic cholelithiasis. 3. Rule out right perihilar infiltrate. 4. Recent positive COVID-19 serology, asymptomatic. Obtain blood cultures. Patient is for MRCP. Continue empiric coverage of biliary tract pathogens with Zosyn. Would recommend a CAT scan of the chest at some point to assess chest x-ray findings. These findings may be artifact or may represent residual disease from possible COVID pneumonitis. Thank you for the kind referral. JENNIFER HAYS M.D. [id number]
[2020-03-24 14:07] LABS: URINE BACTERIA 356.5 /uL (0-1359); URINE CRYSTALS NON SEEN /hpf
[2020-03-24] MEDS ORDERED: METOCLOPRAMIDE HCL INJECTION 10 MG/2 ML VIAL IVPUSH PRN (17:37)
[2020-03-25] MEDS ORDERED: PIPERACILLIN/TAZOBACTAM 3.375 GM VIAL IVPB ONE ×4 (00:27→17:00)
[2020-03-25] MEDS ORDERED: DEXTROSE 5%-WATER - 50 ML IVPB ONE ×4 (00:27→17:00)
[2020-03-25] MEDS: PIPERACILLIN/TAZOB 3.375 GM 3.375 GM in DEXTROSE 5%-WATER - 50 ML IVPB SCH ×3 (01:08→17:12)
[2020-03-25] MEDS: SODIUM CHLORIDE 1,000 ML IV SCH ×3 (04:38→21:36)
[2020-03-25 07:50] LABS: BASO % 0.5 % (0-2.0); EOS % 2.5 % (0-4.5); HEMOGLOBIN 11.2 GM/dL (10.7-15.3); LYMPH % 35.8 % (8-40); MCH 30.2 pg (25.7-33.7); MCHC 33.8 g/dl (32.0-36.0); MEAN CELL VOLUME 89.1 fl (80-96); MEAN PLT VOLUME 9.7 fl (7.5-11.1); MONO % 6.1 % (3.8-10.2); NEUT % 55.1 % (42.8-82.8); PLATELET COUNT 202 K/MM3 (134-434); RBC 3.71 M/mm3 (3.60-5.2); RDW 13.7 % (11.6-15.6); WHITE BLOOD COUNT 5.1 K/mm3 (4.0-10.0)
[2020-03-25 08:09] LABS: ALBUMIN 3.3 g/dl (3.4-5.0); BLOOD UREA NITROGEN 9.9 mg/dL (7-18); CALCIUM 8.2 mg/dL (8.5-10.1); CREATININE 0.8 mg/dL (0.55-1.3); TOT PROT 6.4 g/dl (6.4-8.2)
[2020-03-25 08:20] LABS: BILIRUBIN,TOTAL 2.7 mg/dL (0.2-1)
--- NOTE | 2020-03-25 09:42 | PN ---
Progress Note (short form) - Note Progress Note: Pt denies any abdominal pain now, says she would like to eat or drink something. She is minimally icteric today.M CBC,CMP WBC 5.1 K/mm3 (4.0-10.0) 03/25/20 06:20 RBC 3.71 M/mm3 (3.60-5.2) 03/25/20 06:20 Hgb 11.2 GM/dL (10.7-15.3) 03/25/20 06:20 Hct 33.0 % (32.4-45.2) 03/25/20 06:20 MCV 89.1 fl (80-96) 03/25/20 06:20 MCH 30.2 pg (25.7-33.7) 03/25/20 06:20 MCHC 33.8 g/dl (32.0-36.0) 03/25/20 06:20 RDW 13.7 % (11.6-15.6) 03/25/20 06:20 Plt Count 202 K/MM3 (134-434) 03/25/20 06:20 MPV 9.7 fl (7.5-11.1) 03/25/20 06:20 Absolute Neuts (auto) 2.8 K/mm3 (1.5-8.0) 03/25/20 06:20 Neutrophils % 55.1 % (42.8-82.8) 03/25/20 06:20 Lymphocytes % 35.8 % (8-40) D 03/25/20 06:20 Monocytes % 6.1 % (3.8-10.2) 03/25/20 06:20 Eosinophils % 2.5 % (0-4.5) D 03/25/20 06:20 Basophils % 0.5 % (0-2.0) 03/25/20 06:20 Nucleated RBC % 0 % (0-0) 03/25/20 06:20 Sodium 141 mmol/L (136-145) 03/25/20 06:20 Potassium 4.0 mmol/L (3.5-5.1) 03/25/20 06:20 Chloride 108 mmol/L (98-107) H 03/25/20 06:20 Carbon Dioxide 24 mmol/L (21-32) 03/25/20 06:20 Anion Gap 9 MMOL/L (8-16) 03/25/20 06:20 BUN 9.9 mg/dL (7-18) 03/25/20 06:20 Creatinine 0.8 mg/dL (0.55-1.3) 03/25/20 06:20 Est GFR (CKD-EPI)AfAm 114.66 03/25/20 06:20 Est GFR (CKD-EPI)NonAf 98.93 03/25/20 06:20 POC Glucometer 115 UNITS (80-120) 03/23/20 21:20 Random Glucose 82 mg/dL (74-106) 03/25/20 06:20 Hemoglobin A1c % 5.3 % (4.2-6.3) 03/23/20 21:15 Calcium 8.2 mg/dL (8.5-10.1) L 03/25/20 06:20 Phosphorus 3.5 mg/dL (2.5-4.9) 03/24/20 05:50 Magnesium 1.8 mg/dL (1.8-2.4) 03/24/20 05:50 Total Bilirubin 2.7 mg/dL (0.2-1) H 03/25/20 06:20 AST 199 U/L (15-37) H 03/25/20 06:20 ALT 322 U/L (13-61) H 03/25/20 06:20 Alkaline Phosphatase 91 U/L (45-117) 03/25/20 06:20 Creatine Kinase 163 U/L (26-192) 03/23/20 21:15 Creatine Kinase Index No Result Required. 03/23/20 21:15 CK-MB (CK-2) < 1.0 ng/mL (0.5-3.6) 03/23/20 21:15 Troponin I < 0.02 ng/ml (0.00-0.05) 03/23/20 21:15 Total Protein 6.4 g/dl (6.4-8.2) 03/25/20 06:20 Albumin 3.3 g/dl (3.4-5.0) L 03/25/20 06:20 Lipase 81 U/L (73-393) 03/23/20 21:15 Serum , Qual Negative 03/23/20 21:15 MRI/MRCP not read by radiologist but to my eye the bile ducts are normal diameter without intraluminal stones. I am disturbed by the rise in aminotransfe rases and bilirubin, but the alkaline phosphatase is normal, and I would expect that to go up with an obstructing stone. I explained to Ms Gin that ERCP carries a risk of complication and given the normal MRCP I would not recommend ERCP. Of course if the radiologist sees a CBD stone then this would change my recommendation. I told her that it is possible that she could need an ERCP postoperatively if the LFTs continue to rise after the GB is removed. She indicated she understood. Case discussed earlier with Dr Donald. LFTs ordered for a.m. Problem List - Problems (1) Symptomatic cholelithiasis Code(s): K80.20 - CALCULUS OF GALLBLADDER W/O CHOLECYSTITIS W/O OBSTRUCTION
[2020-03-25] MEDS: PANTOPRAZOLE SODIUM 40 MG VIAL IVPUSH SCH (10:35)
[2020-03-25] MEDS ORDERED: SIMETHICONE 80 MG TAB.CHEW (FP) PO PRN (17:12)
--- NOTE | 2020-03-25 18:15 | PN ---
Physical Exam: SUBJECTIVE: Patient seen and examined at bedside, endorses some abdominal discomfort, MRCP results pending, will need elective lap danielle, spike in LFTs noted. GI following. VSS. OBJECTIVE: Vital Signs Period Temp Pulse Resp BP Sys/Griggs Pulse Ox Last 24 Hr 97.6 F-98.5 F 58-64 18-18 101-130/56-71 96-98 GENERAL: AAOx3, speaking in full sentences, NAD HEAD: Normal with no signs of trauma EYES: PERRL, direct and consensual pupillary reflex intact, extraocular movements intact NECK: no lymphadenopathy noted LUNGS: CTAB, no wheezing appreciated HEART: RRR, S1 and S2 with no other hear sounds appreciated ABDOMEN: Epigastric TTP, Soft, ND, BS+ MUSCULOSKELETAL: full range of motion, ambulates well UPPER EXTREMITIES: radial pulses palpable, no edema LOWER EXTREMITIES: dorsalis pedis pulses palpable, no pitting edema NEUROLOGICAL: Cranial nerves II-XII grosssly intact. Normal speech. Normal gait. PSYCHIATRIC: Cooperative, talkative. Good eye contact. Appropriate mood and affect, nervous SKIN: Warm, no other rashes or lesions noted Laboratory Results - last 24 hr 03/23/20 03/24/20 03/25/20 22:55 13:19 06:20 WBC RBC Hgb Hct MCV MCH MCHC RDW Plt Count MPV Absolute Neuts (auto) Neutrophils % Lymphocytes % Monocytes % Eosinophils % Basophils % Nucleated RBC % Sodium 141 Potassium 4.0 Chloride 108 H Carbon Dioxide 24 Anion Gap 9 BUN 9.9 Creatinine 0.8 Est GFR (CKD-EPI)AfAm 114.66 Est GFR (CKD-EPI)NonAf 98.93 POC Glucometer Random Glucose 82 Calcium 8.2 L Total Bilirubin 2.7 H AST 199 H ALT 322 H Alkaline Phosphatase 91 Total Protein 6.4 Albumin 3.3 L COVID-19 ([place]) Not detected Hep A IgM Ab Confirm Negative Hep Bs Antigen Negative Hep B Core IgM Ab Negative Hepatitis C Ab (EIA) <0.1 03/25/20 03/25/20 06:20 12:15 WBC 5.1 RBC 3.71 Hgb 11.2 Hct 33.0 MCV 89.1 MCH 30.2 MCHC 33.8 RDW 13.7 Plt Count 202 MPV 9.7 Absolute Neuts (auto) 2.8 Neutrophils % 55.1 Lymphocytes % 35.8 D Monocytes % 6.1 Eosinophils % 2.5 D Basophils % 0.5 Nucleated RBC % 0 Sodium Potassium Chloride Carbon Dioxide Anion Gap BUN Creatinine Est GFR (CKD-EPI)AfAm Est GFR (CKD-EPI)NonAf POC Glucometer 106 Random Glucose Calcium Total Bilirubin AST ALT Alkaline Phosphatase Total Protein Albumin COVID-19 ([place]) Hep A IgM Ab Confirm Hep Bs Antigen Hep B Core IgM Ab Hepatitis C Ab (EIA) Active Medications Generic Name Dose Route Start Last Admin Trade Name Freq PRN Reason Stop Dose Admin Sodium Chloride 1,000 mls @ 125 mls/hr 03/23/20 22:45 03/25/20 13:11 Normal Saline - IV 125 mls/hr ASDIR CORBY Administration Piperacillin Sod/Tazobactam 50 mls @ 100 mls/hr 03/24/20 10:00 03/25/20 17:12 Sod 3.375 gm/ Dextrose IVPB 100 mls/hr Q8H-IV CORBY Administration Protocol Metoclopramide HCl 10 mg 03/24/20 17:37 03/24/20 17:50 Reglan Injection - IVPUSH 10 mg Q8H PRN Administration NAUSEA AND/OR VOMITING Morphine Sulfate 1 mg 03/24/20 02:43 03/24/20 09:00 Morphine Sulfate IVPUSH 1 mg Q4H PRN Administration PAIN LEVEL 6-10 Pantoprazole Sodium 40 mg 03/24/20 10:00 03/25/20 10:35 Protonix Iv IVPUSH 40 mg DAILY CORBY Administration Simethicone 80 mg 03/25/20 17:12 03/25/20 17:21 Mylicon - PO 80 mg Q4H PRN Administration GAS ASSESSMENT/PLAN: 29 F suspected cholecystitis r/o CBD stone Obesity Plan: Cont. morphine for pain control, liquid diet otherwise NPO if feeling pain Awaiting MRCP results Cont. Zosyn Needs lap danielle Surgery following GI following DVT ppx: Heparin SC Visit type - Emergency Visit Emergency Visit: Yes ED Registration Date: 03/23/20 Care time: The patient presented to the Emergency Department on the above date and was hospitalized for further evaluation of their emergent condition. - New Patient This patient is new to me today: No - Critical Care Critical Care patient: No - Discharge Referral Referred to [facility] Med P.C.: No
--- NOTE | 2020-03-25 18:33 | EKG ---
Test Reason : Blood Pressure : / mmHG Vent. Rate : 081 BPM Atrial Rate : 081 BPM P-R Int : 166 ms QRS Dur : 080 ms QT Int : 392 ms P-R-T Axes : 036 030 021 degrees QTc Int : 455 ms NORMAL SINUS RHYTHM NORMAL ECG WHEN COMPARED WITH ECG OF 16-JAN-2019 17:13, SINUS RHYTHM HAS REPLACED ELECTRONIC VENTRICULAR PACEMAKER Confirmed by MD KAMLA, CHRISS ([id number]) on 03/25/2020 6:33:10 PM Referred By: Confirmed By:CHRISS CASON MD
[2020-03-25] MEDS: HEPARIN NA (PORCINE) 5,000 UNITS/ML 1ML VIAL SQ SCH (21:28)
[2020-03-26] MEDS ORDERED: PIPERACILLIN/TAZOBACTAM 3.375 GM VIAL IVPB ONE ×2 (01:19→09:25)
[2020-03-26] MEDS ORDERED: DEXTROSE 5%-WATER - 50 ML IVPB ONE ×2 (01:20→09:25)
[2020-03-26] MEDS: PIPERACILLIN/TAZOB 3.375 GM 3.375 GM in DEXTROSE 5%-WATER - 50 ML IVPB SCH ×2 (02:37→09:29)
[2020-03-26] MEDS: HEPARIN NA (PORCINE) 5,000 UNITS/ML 1ML VIAL SQ SCH ×4 (06:09→21:45)
[2020-03-26] MEDS: SODIUM CHLORIDE 1,000 ML IV SCH (06:11)
[2020-03-26 08:25] LABS: BASO % 0.3 % (0-2.0); EOS % 2.5 % (0-4.5); HEMOGLOBIN 11.2 GM/dL (10.7-15.3); LYMPH % 40.9 % (8-40); MCH 29.7 pg (25.7-33.7); MCHC 34.1 g/dl (32.0-36.0); MEAN CELL VOLUME 87.1 fl (80-96); MEAN PLT VOLUME 9.3 fl (7.5-11.1); MONO % 6.8 % (3.8-10.2); NEUT % 49.5 % (42.8-82.8); PLATELET COUNT 214 K/MM3 (134-434); RBC 3.79 M/mm3 (3.60-5.2); RDW 13.6 % (11.6-15.6); WHITE BLOOD COUNT 5.1 K/mm3 (4.0-10.0)
[2020-03-26 08:56] LABS: CHOLESTEROL 218 mg/dL (50-200); HDL CHOLESTEROL 34 mg/dL (40-60); LDL CHOLESTEROL (ONLY SJRH) 158 mg/dL (5-100); TRIGLYCERIDES 143 mg/dL (0-150)
[2020-03-26 09:04] LABS: ALBUMIN 3.3 g/dl (3.4-5.0); BILIRUBIN,DIRECT 0.7 mg/dL (0.0-0.2); BLOOD UREA NITROGEN 6.4 mg/dL (7-18); CALCIUM 8.4 mg/dL (8.5-10.1); CREATININE 0.8 mg/dL (0.55-1.3); POTASSIUM 3.7 mmol/L (3.5-5.1); TOT PROT 6.5 g/dl (6.4-8.2)
[2020-03-26] MEDS: PANTOPRAZOLE SODIUM 40 MG VIAL IVPUSH SCH (09:30)
--- NOTE | 2020-03-26 12:42 | PN.GI ---
GI Progress Note Subjective: No acute events No abdominal pain - Objective Vital Signs: Vital Signs Temperature 98.0 F 03/26/20 09:24 Pulse Rate 97 H 03/26/20 09:24 Respiratory Rate 18 03/26/20 09:24 Blood Pressure 151/80 03/26/20 09:24 O2 Sat by Pulse Oximetry (%) 98 03/26/20 09:24 Constitutional: Calm Eyes: Yes: Sclera Icterus (Mild) Cardiovascular: Yes: Regular Rate and Rhythm Respiratory: Yes: CTA Bilaterally. No: Diminished Gastrointestinal Inspection: No: Distention, Scars ...Auscultate: Yes: Normoactive Bowel Sounds ...Palpate: Yes: Soft. No: Hepatomegaly, Splenomegaly, Tenderness ...Percussion: No: Tympanitic Edema: No (No LE edema) Neurological: Yes: Alert Labs: CBC, BMP 03/26/20 06:33 03/26/20 06:33 INR, PTT INR 0.92 (0.83-1.09) 03/24/20 05:50 Hepatic Panel Total Bilirubin 2.0 mg/dL (0.2-1) H 03/26/20 06:33 Direct Bilirubin 0.7 mg/dL (0.0-0.2) H 03/26/20 06:33 AST 152 U/L (15-37) H 03/26/20 06:33 ALT 308 U/L (13-61) H 03/26/20 06:33 Alkaline Phosphatase 95 U/L (45-117) 03/26/20 06:33 Albumin 3.3 g/dl (3.4-5.0) L 03/26/20 06:33 Problem List - Problems (1) Symptomatic cholelithiasis Assessment/Plan: Clinically improved LFTs continue to improve MRI unrevealing for CBD stone or ductal dilatation For Lap Maria E today. Monitor LFTs post operatively Code(s): K80.20 - CALCULUS OF GALLBLADDER W/O CHOLECYSTITIS W/O OBSTRUCTION
[2020-03-26] MEDS ORDERED: PROPOFOL 20 ML ONE (13:30)
[2020-03-26] MEDS ORDERED: ROCURONIUM BROMIDE 50 MG/5 ML SYRINGE ONE (13:31)
[2020-03-26] MEDS ORDERED: MIDAZOLAM HCL 2 MG/2 ML SINGLE DOSE VIAL ONE ×2 (13:31→14:50)
[2020-03-26] MEDS ORDERED: ceFAZolin SODIUM 1 GM VIAL ONE (13:39)
[2020-03-26] MEDS ORDERED: LIDOCAINE HCL 2% 100 MG/5 ML DISP.SYRIN ONE (13:39)
[2020-03-26] MEDS ORDERED: ONDANSETRON 4 MG/2 ML VIAL IVPUSH PRN ×2 (13:42→15:03)
[2020-03-26] MEDS ORDERED: ceFAZolin SODIUM 1 GM VIAL IVPB ONE (13:55)
[2020-03-26] MEDS ORDERED: ONDANSETRON 4 MG/2 ML VIAL ONE (14:00)
[2020-03-26] MEDS ORDERED: DEXAMETHASONE SOD PHOSPHATE 4 MG/1 ML VIAL ONE (14:00)
[2020-03-26] MEDS ORDERED: KETOROLAC TROMETHAMINE 30 MG/1 ML VIAL ONE (14:27)
[2020-03-26] MEDS ORDERED: NEOSTIGMINE METHYLSULFATE 0.5 MG/1 ML - 10 ML MDV ONE (14:28)
[2020-03-26] MEDS ORDERED: GLYCOPYRROLATE 0.2 MG/1 ML VIAL ONE ×2 (14:28→14:43)
[2020-03-26] MEDS ORDERED: BUPIVACAINE HCL/PF 0.5% (5 MG/ML) 30 ML VIAL IJ ONE ×2 (14:35)
--- NOTE | 2020-03-26 14:53 | OP ---
Operative Note - Note: Operative Date: 03/26/20 Pre-Operative Diagnosis: acute cholecystitis/cholelithiasis Operation: laparoscopic cholecystectomy Findings: acute cholecystitis and cholelithiasis Post-Operative Diagnosis: Same as Pre-op Surgeon: Mushtaq Donald Company Secretary: Abebe Busch Anesthesiologist/HEBREW PROFESSOR: Jamal Paris Anesthesia: General Specimens Removed: gallbladder and contents Estimated Blood Loss (mls): 15
--- NOTE | 2020-03-26 14:58 | SURG ---
Surgery Sheep Herder Note Sheep Herder: Abebe Busch PA-C Date of Service: 03/26/20 Diagnosis: acute cholecystitis/cholelithiasis Procedure: laparoscopic cholecystectomy I was present for the entirety of the operative procedure. For further detail, please refer to operative report. Visit type - Case Type Case Type: ED Admission - Emergency Emergency Visit: Yes ED Registration Date: 03/23/20 Care time: The patient presented to the Emergency Department on the above date a nd was hospitalized for further evaluation of their emergent condition. - New patient This patient is new to me today: Yes Date on this admission: 03/26/20
[2020-03-26] MEDS ORDERED: PROMETHAZINE HCL 25 MG/1 ML VIAL IVPUSH PRN (15:03)
[2020-03-26] MEDS ORDERED: LACTATED RINGERS SOLUTION 1,000 ML IV SCH (15:15)
[2020-03-26] MEDS ORDERED: MEPERIDINE HCL 25 MG/ML VIAL ONE (16:04)
[2020-03-26] MEDS ORDERED: MEPERIDINE HCL 25 MG/ML VIAL IVPUSH ONE ×2 (16:04→16:07)
[2020-03-26] MEDS: LACTATED RINGERS SOLUTION 1,000 ML IV SCH (16:30)
[2020-03-26] MEDS: oxyCODONE HCL 5 MG TABLET PO PRN (17:43)
--- NOTE | 2020-03-26 19:59 | PN ---
Teaching Attending Note Name of Resident: Roque Frausto ATTENDING PHYSICIAN STATEMENT I saw and evaluated the patient. I reviewed the resident's note and discussed the case with the resident. I agree with the resident's findings and plan as documented. SUBJECTIVE: Patient seen and examined at bedside, for lap danielle today, denies abdominal pain, VSS. OBJECTIVE: GENERAL: AAOx3, speaking in full sentences, NAD HEAD: Normal with no signs of trauma EYES: PERRL, direct and consensual pupillary reflex intact, extraocular movements intact NECK: no lymphadenopathy noted LUNGS: CTAB, no wheezing appreciated HEART: RRR, S1 and S2 with no other hear sounds appreciated ABDOMEN: Epigastric TTP, Soft, ND, BS+ MUSCULOSKELETAL: full range of motion, ambulates well UPPER EXTREMITIES: radial pulses palpable, no edema LOWER EXTREMITIES: dorsalis pedis pulses palpable, no pitting edema NEUROLOGICAL: Cranial nerves II-XII grosssly intact. Normal speech. Normal gait. PSYCHIATRIC: Cooperative, talkative. Good eye contact. Appropriate mood and affect, nervous SKIN: Warm, no other rashes or lesions noted Vital Signs - 24 hr 03/25/20 03/25/20 03/26/20 20:44 23:00 03:00 Temperature 98.4 F 97.9 F Pulse Rate 67 62 Respiratory 18 18 Rate Blood Pressure 138/77 124/69 O2 Sat by Pulse 99 99 96 Oximetry (%) 03/26/20 03/26/20 03/26/20 06:42 09:00 09:24 Temperature 98 F 98.0 F Pulse Rate 59 L 97 H Respiratory 18 18 Rate Blood Pressure 131/76 151/80 O2 Sat by Pulse 96 98 98 Oximetry (%) 03/26/20 03/26/20 03/26/20 14:55 15:10 15:25 Temperature 98 F Pulse Rate 73 61 52 L Respiratory 16 15 14 Rate Blood Pressure 146/92 128/75 121/68 O2 Sat by Pulse 95 98 98 Oximetry (%) 03/26/20 03/26/20 03/26/20 15:40 15:55 16:18 Temperature 98 F Pulse Rate 54 L 49 L 57 L Respiratory 17 14 17 Rate Blood Pressure 117/71 118/68 115/65 O2 Sat by Pulse 100 98 97 Oximetry (%) 03/26/20 03/26/20 16:34 19:51 Temperature 97.8 F 98.2 F Pulse Rate 52 L 64 Respiratory 16 16 Rate Blood Pressure 106/65 131/75 O2 Sat by Pulse 95 97 Oximetry (%) Microbiology 03/24/20 10:03 Blood - Peripheral Venous Blood Culture - Preliminary NO GROWTH OBTAINED AFTER 48 HOURS, INCUBATION TO CONTINUE FOR 3 DAYS. 03/24/20 10:03 Blood - Peripheral Venous Blood Culture - Preliminary NO GROWTH OBTAINED AFTER 48 HOURS, INCUBATION TO CONTINUE FOR 3 DAYS. Laboratory Results - last 24 hr 03/26/20 03/26/20 03/26/20 06:33 06:33 06:33 WBC 5.1 RBC 3.79 Hgb 11.2 Hct 33.0 MCV 87.1 MCH 29.7 MCHC 34.1 RDW 13.6 Plt Count 214 MPV 9.3 Absolute Neuts (auto) 2.5 Neutrophils % 49.5 Lymphocytes % 40.9 H Monocytes % 6.8 Eosinophils % 2.5 Basophils % 0.3 Nucleated RBC % 0 Sodium 141 Potassium 3.7 Chloride 110 H Carbon Dioxide 21 Anion Gap 11 BUN 6.4 L Creatinine 0.8 Est GFR (CKD-EPI)AfAm 114.66 Est GFR (CKD-EPI)NonAf 98.93 Random Glucose 79 Hemoglobin A1c % Calcium 8.4 L Total Bilirubin 2.0 H Direct Bilirubin 0.7 H AST 152 H ALT 308 H Alkaline Phosphatase 95 Total Protein 6.5 Albumin 3.3 L Triglycerides 143 Cholesterol 218 H Total LDL Cholesterol 158 H HDL Cholesterol 34 L TSH 2.35 03/26/20 06:33 WBC RBC Hgb Hct MCV MCH MCHC RDW Plt Count MPV Absolute Neuts (auto) Neutrophils % Lymphocytes % Monocytes % Eosinophils % Basophils % Nucleated RBC % Sodium Potassium Chloride Carbon Dioxide Anion Gap BUN Creatinine Est GFR (CKD-EPI)AfAm Est GFR (CKD-EPI)NonAf Random Glucose Hemoglobin A1c % 5.5 Calcium Total Bilirubin Direct Bilirubin AST ALT Alkaline Phosphatase Total Protein Albumin Triglycerides Cholesterol Total LDL Cholesterol HDL Cholesterol TSH Home Medications Medication Instructions Recorded Metformin HCl [Glucophage] 500 mg PO BID 01/01/20 Current Medications Generic Name Dose Route Start Last Admin Trade Name Freq PRN Reason Stop Dose Admin Fentanyl 50 mcg 03/26/20 13:42 03/26/20 15:43 Sublimaze Injection - IVPUSH 50 mcg [id number] PRN Administration PAIN-PACU ORDER X 4 DOSES ONLY Fentanyl 50 mcg 03/26/20 15:03 03/26/20 15:24 Sublimaze Injection - IVPUSH 50 mcg [id number] PRN Administration PAIN-PACU ORDER X 4 DOSES ONLY Heparin Sodium (Porcine) 5,000 unit 03/25/20 22:00 03/26/20 16:50 Heparin - SQ Not Given TID CORBY Sodium Chloride 1,000 mls @ 125 mls/hr 03/23/20 22:45 03/26/20 06:11 Normal Saline - IV 125 mls/hr ASDIR CORBY Administration Lactated Ringer's 1,000 mls @ 125 mls/hr 03/26/20 13:45 03/26/20 16:30 Lactated Ringers Solution IV 125 mls/hr ASDIR CORBY Administration Lactated Ringer's 1,000 mls @ 125 mls/hr 03/26/20 15:15 03/26/20 17:26 Lactated Ringers Solution IV Not Given ASDIR CORBY Metoclopramide HCl 10 mg 03/24/20 17:37 03/24/20 17:50 Reglan Injection - IVPUSH 10 mg Q8H PRN Administration NAUSEA AND/OR VOMITING Morphine Sulfate 1 mg 03/24/20 02:43 03/24/20 09:00 Morphine Sulfate IVPUSH 1 mg Q4H PRN Administration PAIN LEVEL 6-10 Ondansetron HCl 4 mg 03/26/20 13:42 Zofran Injection IVPUSH Q6H PRN NAUSEA AND/OR VOMITING Ondansetron HCl 4 mg 03/26/20 15:03 Zofran Injection IVPUSH Q6H PRN NAUSEA AND/OR VOMITING Oxycodone HCl 5 mg 03/26/20 13:42 03/26/20 17:43 Roxicodone - PO 5 mg Q4H PRN Administration Pain Pantoprazole Sodium 40 mg 03/24/20 10:00 03/26/20 09:30 Protonix Iv IVPUSH 40 mg DAILY CORBY Administration Promethazine HCl 12.5 mg 03/26/20 15:03 Phenergan Injection - IVPUSH Q6H PRN NAUSEA-FOR RESCUE AFTER 15 MIN Simethicone 80 mg 03/25/20 17:12 03/25/20 17:21 Mylicon - PO 80 mg Q4H PRN Administration GAS ASSESSMENT AND PLAN: 29 F suspected cholecystitis for lap danielle today r/o CBD stone Obesity Plan: Cont. morphine for pain control, strict NPO for procedure Will need lap danielle today +/- ERCP post-procedure Cont. Zosyn Surgery following GI following DVT ppx: Heparin SC
[2020-03-26] MEDS: MORPHINE SULFATE 2 MG/ML VIAL IVPUSH PRN (21:09)
[2020-03-27] MEDS: LACTATED RINGERS SOLUTION 1,000 ML IV SCH (00:05)
[2020-03-27] MEDS: oxyCODONE HCL 5 MG TABLET PO PRN ×3 (04:25→13:29)
[2020-03-27] MEDS: HEPARIN NA (PORCINE) 5,000 UNITS/ML 1ML VIAL SQ SCH ×2 (06:05→13:30)
[2020-03-27 07:31] LABS: BASO % 0.2 % (0-2.0); EOS % 0.1 % (0-4.5); HEMATOCRIT 31.9 % (32.4-45.2); HEMOGLOBIN 10.8 GM/dL (10.7-15.3); LYMPH % 24.3 % (8-40); MCH 29.8 pg (25.7-33.7); MEAN CELL VOLUME 87.6 fl (80-96); MEAN PLT VOLUME 8.9 fl (7.5-11.1); MONO % 5.6 % (3.8-10.2); NEUT % 69.8 % (42.8-82.8); PLATELET COUNT 225 K/MM3 (134-434); RBC 3.64 M/mm3 (3.60-5.2); RDW 13.5 % (11.6-15.6); WHITE BLOOD COUNT 8.2 K/mm3 (4.0-10.0)
[2020-03-27 07:44] LABS: ALBUMIN 3.2 g/dl (3.4-5.0); BILIRUBIN,DIRECT 0.3 mg/dL (0.0-0.2); BLOOD UREA NITROGEN 7.9 mg/dL (7-18); CALCIUM 8.6 mg/dL (8.5-10.1); POTASSIUM 4.1 mmol/L (3.5-5.1)
[2020-03-27 07:48] LABS: BILIRUBIN,TOTAL 1.2 mg/dL (0.2-1); CREATININE 0.7 mg/dL (0.55-1.3); PHOSPHOROUS 3.3 mg/dL (2.5-4.9); TOT PROT 6.3 g/dl (6.4-8.2)
--- NOTE | 2020-03-27 08:27 | PN ---
Progress Note (short form) - Note Progress Note: POD#1 s/p laparoscopic cholecystectomy under GETA. Doing well, denies n/v/sore throat. Has some pain, controlled with oral pain Rx. All questions answered.
--- NOTE | 2020-03-27 10:42 | PN ---
Progress Note (short form) - Note Progress Note: Surgery POD #1 laparoscopic cholecysectomy patient seen and examined at bedside with no complaints. Her pain is controlled and she is tolerating her diet, has been OOB and voiding. She denies any CP, SOB, N/V, fever or chills. Vital Signs Temp 97.5 F L 03/27/20 06:00 Pulse 53 L 03/27/20 06:00 Resp 16 03/27/20 06:00 BP 134/77 03/27/20 06:00 Pulse Ox 95 03/27/20 06:00 Intake & Output 03/26/20 03/26/20 03/27/20 11:59 23:59 11:59 Intake Total 0325 438 8296 Output Total 10 Balance 3483 612 4777 Intake: IV 8388 350 0051 Lactated Ringers Solution 1375 1,000 ml @ 125 mls/hr IV ASDIR CORBY Rx#: [id number] Normal Saline - 1,000 ml 1750 @ 125 mls/hr IV ASDIR CORBY Rx#:[id number] IVPB 100 Oral 0 0 Output: Estimated Blood Loss 10 Other: Voiding Method Toilet Toilet Toilet # Unmeasured Voids Void 1 1 3 Bowel Movement No CBC, BMP 03/27/20 06:15 03/27/20 06:15 PE: A&Ox3, NAD Unlabored resp on RA ABD: obese, soft, ND, with mild ttp at port sites. incisions c/d/i with surrounding tissue intact and no tracking erythema or active d/c B/L LE compartments soft, supple and non-tender with +2 DP pulses. Problem List - Problems (1) Symptomatic cholelithiasis Assessment/Plan: POD #1 lap danielle, doing well 1) advance to regular diet this morning. 2) OOB as tolerated 3) Encourage IS 4) D/c planning for home Cleared from surgical perspective for d/c Evaluation and plan discussed with Dr Donald Code(s): K80.20 - CALCULUS OF GALLBLADDER W/O CHOLECYSTITIS W/O OBSTRUCTION
--- NOTE | 2020-03-27 11:09 | OP ---
DATE OF OPERATION: 03/26/2020 PREOPERATIVE DIAGNOSIS: Acute cholecystitis and cholelithiasis. POSTOPERATIVE DIAGNOSIS: Acute cholecystitis and cholelithiasis. PROCEDURE: Laparoscopic cholecystectomy. SURGEON: Mushtaq Donald MD BEHAVIOR CLINICIAN: Abebe Busch PA-C ANESTHESIA: General. OPERATIVE FINDINGS: Acute cholecystitis and cholelithiasis. The rest of the findings were unremarkable. DESCRIPTION OF PROCEDURE: The patient was placed on the operating room table in supine position. After the induction of general anesthesia, the patient's abdomen was prepped with ChloraPrep and draped in sterile fashion. Time-out was taken and then pneumoperitoneum established above the umbilicus using a Veress needle. Once 15 mm of intra-abdominal pressure was obtained, a 5-mm port was placed at the umbilicus. Additional lateral 5-mm ports and a subxiphoid 12-mm port were placed and laparoscopy carried out, and the previously noted findings were observed. The gallbladder was placed on cephalad and lateral traction, and dissection was begun at the neck of the gallbladder where the peritoneum was opened medially and laterally using blunt and sharp dissection and electrocautery. Dissection continued in the triangle of Calot where the cystic duct was identified coursing from the neck of the gallbladder distally to the common bile duct. It was dissected proximally and distally for length. Similarly, the artery was similarly identified and dissected. A critical view of safety was taken, and then the cystic duct divided proximally and distally using Endo Valarie after it was clipped twice proximally and distally with large hemoclips. The artery was similarly clipped and divided. Hemostasis was checked for and noted to be good and then the gallbladder was removed from the liver bed in a retrograde fashion using electrocautery. Prior to removal from the edge of the liver, hemostasis was again verified and then the gallbladder removed from the edge of the liver, placed in an EndoCatch, and brought out through the subxiphoid port. Pneumoperitoneum was reestablished, hemostasis verified again, and then the 5-mm lateral and subxiphoid ports were removed under laparoscopic vision without evidence of bleeding from the port sites. The umbilical port was removed and the pneumoperitoneum evacuated. All port sites were infiltrated with 0.5% Marcaine and the skin edges closed with 4-0 Biosyn in a subcuticular and continuous fashion. Steri-Strips and Band-Aid dressings were placed and the procedure terminated at this point and the patient aroused from general anesthesia and transferred to the post anesthesia care unit in stable condition awake and alert. ESTIMATED BLOOD LOSS: 15 mL. REPLACEMENTS: Crystalloid. DRAINS: None. SPECIMENS: Gallbladder and contents to Pathology. I, Mushtaq Donald, was physically present in the operating room from the time the patient was placed on the operating room table until she was transferred to the post anesthesia care unit in my accompaniment. MD RACHEL Robles/[id number] MTDD
[2020-03-27] MEDS: PANTOPRAZOLE SODIUM 40 MG VIAL IVPUSH SCH (11:39)
--- NOTE | 2020-03-27 13:43 | PN ---
Progress Note (short form) - Note Progress Note: S/P Lap Maria E 03/26 LFTs improving Continue to monitor LFTs. Ordered for Am Problem List - Problems (1) Symptomatic cholelithiasis Code(s): K80.20 - CALCULUS OF GALLBLADDER W/O CHOLECYSTITIS W/O OBSTRUCTION
--- NOTE | 2020-03-27 14:22 | PN ---
Teaching Attending Note Name of Resident: Roque Frausto ATTENDING PHYSICIAN STATEMENT I saw and evaluated the patient. I reviewed the resident's note and discussed the case with the resident. I agree with the resident's findings and plan as documented. SUBJECTIVE: OBJECTIVE: Last Vital Signs Temp Pulse Resp BP Pulse Ox 98.3 F 55 L 18 136/92 98 03/27/20 10:00 03/27/20 10:00 03/27/20 10:00 03/27/20 10:00 03/27/20 10:00 GENERAL: AAOx3, speaking in full sentences, NAD LUNGS: CTAB, no wheezing appreciated HEART: RRR, S1 and S2 with no other hear sounds appreciated ABDOMEN: obese, mild tenderness at surgical site, Soft, ND, BS+ MUSCULOSKELETAL: full range of motion, ambulates well UPPER EXTREMITIES: radial pulses palpable, no edema LOWER EXTREMITIES: dorsalis pedis pulses palpable, no pitting edema CBCD WBC 8.2 K/mm3 (4.0-10.0) 03/27/20 06:15 RBC 3.64 M/mm3 (3.60-5.2) 03/27/20 06:15 Hgb 10.8 GM/dL (10.7-15.3) 03/27/20 06:15 Hct 31.9 % (32.4-45.2) L 03/27/20 06:15 MCV 87.6 fl (80-96) 03/27/20 06:15 MCHC 34.0 g/dl (32.0-36.0) 03/27/20 06:15 RDW 13.5 % (11.6-15.6) 03/27/20 06:15 Plt Count 225 K/MM3 (134-434) 03/27/20 06:15 MPV 8.9 fl (7.5-11.1) 03/27/20 06:15 CMP Sodium 140 mmol/L (136-145) 03/27/20 06:15 Potassium 4.1 mmol/L (3.5-5.1) 03/27/20 06:15 Chloride 108 mmol/L (98-107) H 03/27/20 06:15 Carbon Dioxide 24 mmol/L (21-32) 03/27/20 06:15 Anion Gap 8 MMOL/L (8-16) 03/27/20 06:15 BUN 7.9 mg/dL (7-18) 03/27/20 06:15 Creatinine 0.7 mg/dL (0.55-1.3) 03/27/20 06:15 Random Glucose 89 mg/dL (74-106) 03/27/20 06:15 Calcium 8.6 mg/dL (8.5-10.1) 03/27/20 06:15 Total Bilirubin 1.2 mg/dL (0.2-1) H 03/27/20 06:15 AST 98 U/L (15-37) H 03/27/20 06:15 ALT 246 U/L (13-61) H 03/27/20 06:15 Alkaline Phosphatase 88 U/L (45-117) 03/27/20 06:15 Total Protein 6.3 g/dl (6.4-8.2) L 03/27/20 06:15 Albumin 3.2 g/dl (3.4-5.0) L 03/27/20 06:15 CARDIAC ENZYMES Creatine Kinase 163 U/L (26-192) 03/23/20 21:15 Troponin I < 0.02 ng/ml (0.00-0.05) 03/23/20 21:15 Active Medications Fentanyl (Sublimaze Injection -) 50 mcg IVPUSH [id number] PRN PRN Reason: PAIN-PACU ORDER X 4 DOSES ONLY Last Admin: 03/26/20 15:43 Dose: 50 mcg Documented by: Fentanyl (Sublimaze Injection -) 50 mcg IVPUSH [id number] PRN PRN Reason: PAIN-PACU ORDER X 4 DOSES ONLY Last Admin: 03/26/20 15:24 Dose: 50 mcg Documented by: Heparin Sodium (Porcine) (Heparin -) 5,000 unit SQ TID [facility] Last Admin: 03/27/20 13:30 Dose: 5,000 unit Documented by: Sodium Chloride (Normal Saline -) 1,000 mls @ 125 mls/hr IV ASDIR [facility] Last Admin: 03/26/20 06:11 Dose: 125 mls/hr Documented by: Lactated Ringer's (Lactated Ringers Solution) 1,000 mls @ 125 mls/hr IV ASDIR [facility] Last Admin: 03/27/20 00:05 Dose: 125 mls/hr Documented by: Lactated Ringer's (Lactated Ringers Solution) 1,000 mls @ 125 mls/hr IV ASDIR [facility] Last Admin: 03/26/20 17:26 Dose: Not Given Documented by: Metoclopramide HCl (Reglan Injection -) 10 mg IVPUSH Q8H PRN PRN Reason: NAUSEA AND/OR VOMITING Last Admin: 03/24/20 17:50 Dose: 10 mg Documented by: Ondansetron HCl (Zofran Injection) 4 mg IVPUSH Q6H PRN PRN Reason: NAUSEA AND/OR VOMITING Last Admin: 03/26/20 21:06 Dose: 4 mg Documented by: Ondansetron HCl (Zofran Injection) 4 mg IVPUSH Q6H PRN PRN Reason: NAUSEA AND/OR VOMITING Oxycodone HCl (Roxicodone -) 5 mg PO Q4H PRN PRN Reason: PAIN LEVEL 1-5 Last Admin: 03/27/20 04:25 Dose: 5 mg Documented by: Oxycodone HCl (Roxicodone -) 10 mg PO Q4H PRN PRN Reason: PAIN LEVEL 6-10 Last Admin: 03/27/20 13:29 Dose: 10 mg Documented by: Pantoprazole Sodium (Protonix Iv) 40 mg IVPUSH DAILY [facility] Last Admin: 03/27/20 11:39 Dose: 40 mg Documented by: Promethazine HCl (Phenergan Injection -) 12.5 mg IVPUSH Q6H PRN PRN Reason: NAUSEA-FOR RESCUE AFTER 15 MIN Simethicone (Mylicon -) 80 mg PO Q4H PRN PRN Reason: GAS Last Admin: 03/25/20 17:21 Dose: 80 mg Documented by: ASSESSMENT AND PLAN: 29yo F with PMHx of PCOS (currently not taking metformin), CRISTO who presents with severe midepigastric and RUQ pain. Limited US showed cholelithiasis for which she is admitted. #cholecystitis s/p lap danielle POD1 had BM, tolerating diet LFT trending down no fever, no leukocytosis cleared by surgery for discharge Morbid Obesity DVT ppx: Heparin SC
[2020-03-27 14:34] VITALS: BP 112/64; PULSE 59; TEMP 98.2
--- NOTE | 2020-03-28 14:41 | PATH ---
Surgical Pathology Report Patient Name: SKYLER GARCIA Med. Rec. #: [id number] /Age/Gender: 1990 (Age: 29) / F Account: [id number] Location: [facility] MED/SURG Taken: 03/26/2020 Received: 03/27/2020 Reported: 03/28/2020 Physicians: MD LO Mariscal Specimen(s) Received GALLBLADDER Clinical History Symptomatic cholelithiasis Final Diagnosis GALLBLADDER, LAPAROSCOPIC CHOLECYSTECTOMY: CHRONIC CHOLECYSTITIS, CHOLESTEROLOSIS, AND CHOLELITHIASIS. Electronically Signed Lillian Nguyen M.D. Gross Description Received in formalin, labeled "gallbladder," is a 6.8 x 2.8 x 2.0 cm. gallbladder with a 0.2 cm. in length portion of cystic duct attached. The outer surface is [place]-green with a focal defect and varies from smooth to shaggy. The lumen contains green, tenacious bile as well as multiple yellow, spherical choleliths averaging 0.3 cm in greatest dimension. The mucosa is dark green and velvety with gold cholesterol stippling. The wall of the gallbladder measures 0.1 cm. in thickness. Food Counter Attendant sections are submitted in one cassette. 03/27/2020 [facility]03/27/2020
== END 2020-03-27 15:00 | disposition home or self-care (01) | DRG 419 ==
LOC: JER 19:07 → JERBED 22:49 → J7W 03-24 00:11
PROVIDERS: ADMIT Internal Medicine; ATTEND Student in an Organized Health Care Education/Training Program
PROC: 0FT44ZZ Resection of Gallbladder, Percutaneous Endoscopic Approach (ICD-10-PCS; principal; 2020-03-26 13:00)
DX: K80.00 Calculus of gallbladder with acute cholecystitis without obstruction (principal); E66.01 Morbid (severe) obesity due to excess calories
CPT/HCPCS: 36415; 71045-TC-FY; 71250-TC; 74181-TC; 76705-TC; 80048; 80053; 80061; 80074; 80076; 81003; 82550; 82553; 82962; 83036; 83690; 83721; 83735; 84100; 84443; 84484; 84703; 85025; 85610; 85730; 86850; 86870; 86900; 86901; 86902; 87040; 88304-TC; 93005; 93010; 94010; 94760; 99285-25; J0131; J1644; U0003

== ENCOUNTER 2020-10-20 02:43 | Emergency (ER) | payer OTHER ==
[2020-10-20 02:47] VITALS: BMI 33.3
[2020-10-20] MEDS ORDERED: ACETAMINOPHEN 325 MG TABLET (FP) PO ONE (03:21)
[2020-10-20] MEDS ORDERED: ACETAMINOPHEN 325 MG TABLET (FP) ONE (03:23)
[2020-10-20] MEDS ORDERED: DIPHTH,PERTUSS(ACELL),TET 0.5 ML DISP.SYRIN IM ONE ×2 (03:36→03:39)
[2020-10-20 09:12] VITALS: BP 119/78; PULSE 86; TEMP 98.2
== END 2020-10-20 09:18 | disposition home or self-care (01) ==
LOC: JER 02:43
PROC: 3E0234Z Introduction of Serum, Toxoid and Vaccine into Muscle, Percutaneous Approach (ICD-10-PCS; principal; 2020-10-20)
DX: M25.522 Pain in left elbow (principal); M54.5 Low back pain
CPT/HCPCS: 70450-TC; 72100-TC-FY; 72125-TC; 73030-TC-LT-FY; 73060-TC-LT-FY; 73070-TC-LT-FY; 73110-TC-LT-FY; 73130-TC-LT-FY; 84703; 99285-25

== ENCOUNTER 2021-04-24 12:03 | Emergency (ER) | payer OTHER ==
[2021-04-24 12:17] VITALS: BP 122/71; PULSE 87; TEMP 98.1; BMI 36.6
[2021-04-24] MEDS ORDERED: IBUPROFEN 600 MG TABLET (FP) PO ONE ×2 (13:49→13:52)
== END 2021-04-24 14:59 | disposition home or self-care (01) ==
LOC: JERFT 12:03
DX: S93.402A Sprain of unspecified ligament of left ankle, initial encounter (principal); X50.0XXA Overexertion from strenuous movement or load, initial encounter
CPT/HCPCS: 73610-TC-LT-FY; 73630-TC-LT; 99283-25

== ENCOUNTER 2022-03-17 12:26 | Inpatient (IN) | payer OTHER ==
[2022-03-17 12:41] VITALS: BMI 43.2
[2022-03-17] MEDS ORDERED: ALBUTEROL SO4 2.5/IPRATROPIUM 0.5 INH SOL 3 ML VIAL.NEB. NEB ONE ×3 (12:51→13:04)
[2022-03-17] MEDS ORDERED: methylPREDNISolone NA SUCC 125 MG/2 ML VIAL IVPUSH ONE (13:01)
[2022-03-17] MEDS ORDERED: methylPREDNISolone NA SUCC 125 MG/2 ML VIAL ONE (13:04)
[2022-03-17 13:37] LABS: BASO % 0.3 % (0-2.0); EOS % 0.2 % (0-4.5); HEMATOCRIT 40.3 % (32.4-45.2); HEMOGLOBIN 13.5 GM/dL (10.7-15.3); LYMPH % 31.9 % (8-40); MCH 28.9 pg (25.7-33.7); MCHC 33.4 g/dl (32.0-36.0); MEAN CELL VOLUME 86.4 fl (80-96); MEAN PLT VOLUME 8.1 fl (7.5-11.1); MONO % 8.1 % (3.8-10.2); NEUT % 59.5 % (42.8-82.8); PLATELET COUNT 272 10^3/uL (134-434); RBC 4.67 M/mm3 (3.60-5.2); RDW 14.4 % (11.6-15.6)
[2022-03-17 13:58] LABS: CALCIUM 9.5 mg/dL (8.5-10.1)
[2022-03-17 13:59] LABS: ALBUMIN 3.8 g/dl (3.4-5.0); BLOOD UREA NITROGEN 14.2 mg/dL (7-18); MAGNESIUM 2.4 mg/dL (1.8-2.4)
[2022-03-17 14:02] LABS: CREATININE 0.7 mg/dL (0.55-1.3)
[2022-03-17 14:04] LABS: BILIRUBIN,TOTAL 0.5 mg/dL (0.2-1); TOT PROT 8.3 g/dl (6.4-8.2)
[2022-03-17] MEDS ORDERED: ALBUTEROL SO4 0.083% IH SOL 2.5 MG/3 ML VIAL.NEB. NEB ONE ×2 (14:35→14:38)
[2022-03-17] MEDS ORDERED: MAGNESIUM SULF 50% (8.12 MEQ/2 ML-1 GM VIAL) IVPB ONE (14:35)
[2022-03-17] MEDS ORDERED: MAGNESIUM SULFATE IN WATER 2 GM/50 ML IVPB IVPB ONE (14:38)
[2022-03-17 15:48] LABS: N-TERMINAL BNP 25.7 pg/ml (5-125)
[2022-03-17 17:08] LABS: ARTERIAL BLD GAS O2 SATURATION 98.9 % (95-98); ARTERIAL BLOOD GAS BASE EXCESS -4.5 mmol/L (-2-2); ARTERIAL BLOOD GAS PO2 150.7 mmHg (80-100); ARTERIAL BLOOD GAS pH 7.384 (7.350-7.450)
[2022-03-17 17:14] LABS: ALLENS TEST POSITIVE
[2022-03-17] MEDS ORDERED: AZITHROMYCIN IVPB 500 MG in DEXTROSE 5%-WATER - 250 ML IVPB ONE (17:17)
[2022-03-17] MEDS ORDERED: CEFTRIAXONE 1,000 MG in DEXTROSE 5%-WATER - 50 ML IVPB ONE (17:17)
[2022-03-17] MEDS ORDERED: ALBUTEROL SO4 2.5/IPRATROPIUM 0.5 INH SOL 3 ML VIAL.NEB. NEB PRN (17:37)
[2022-03-17] MEDS ORDERED: AZITHROMYCIN IVPB 500 MG/250 ML BAG IVPB ONE ×2 (17:49→18:00)
[2022-03-17 18:12] LABS: MAGNESIUM 2.3 mg/dL (1.8-2.4)
[2022-03-17 18:16] LABS: PHOSPHOROUS 2.8 mg/dL (2.5-4.9)
[2022-03-17] MEDS: DOXYCYCLINE INJECTION 100 MG in DEXTROSE 5%-WATER 100 ML IVPB SCH (22:17)
[2022-03-17] MEDS: methylPREDNISolone NA SUCC 40 MG/1 ML VIAL IVPUSH SCH (22:17)
[2022-03-18] MEDS: metFORMIN HCL 500 MG TABLET (FP) PO SCH ×2 (06:02→17:25)
[2022-03-18] MEDS ORDERED: AZITHROMYCIN IVPB 500 MG/250 ML BAG IVPB SCH (10:00)
[2022-03-18] MEDS: DOXYCYCLINE INJECTION 100 MG in DEXTROSE 5%-WATER 100 ML IVPB SCH ×2 (10:26→22:40)
[2022-03-18] MEDS: CEFTRIAXONE 1 GM in DEXTROSE 5%-WATER - 50 ML IVPB SCH (10:27)
[2022-03-18] MEDS: methylPREDNISolone NA SUCC 40 MG/1 ML VIAL IVPUSH SCH ×2 (10:28→17:30)
[2022-03-18] MEDS: FAMOTIDINE 20 MG TABLET PO SCH (10:28)
[2022-03-18] MEDS: ENOXAPARIN NA (PORCINE) 40 MG/0.4 ML DISP.SYRIN SQ SCH (10:28)
[2022-03-18] MEDS ORDERED: ALBUTEROL SO4 2.5/IPRATROPIUM 0.5 INH SOL 3 ML VIAL.NEB. NEB PRN (12:27)
[2022-03-18] MEDS: ALBUTEROL SO4 2.5/IPRATROPIUM 0.5 INH SOL 3 ML VIAL.NEB. NEB SCH ×4 (12:45→23:45)
[2022-03-18 12:54] LABS: BASO % 1.1 % (0-2.0); HEMATOCRIT 37.2 % (32.4-45.2); HEMOGLOBIN 12.4 GM/dL (10.7-15.3); LYMPH % 24.8 % (8-40); MCH 28.8 pg (25.7-33.7); MCHC 33.4 g/dl (32.0-36.0); MEAN CELL VOLUME 86.3 fl (80-96); MEAN PLT VOLUME 8.1 fl (7.5-11.1); MONO % 6.5 % (3.8-10.2); NEUT % 67.6 % (42.8-82.8); PLATELET COUNT 298 10^3/uL (134-434); RBC 4.31 M/mm3 (3.60-5.2); RDW 14.5 % (11.6-15.6); WHITE BLOOD COUNT 13.1 K/mm3 (4.0-10.0)
[2022-03-18 13:31] LABS: BLOOD UREA NITROGEN 19.9 mg/dL (7-18)
[2022-03-18 13:32] LABS: ALBUMIN 3.8 g/dl (3.4-5.0)
[2022-03-18 13:36] LABS: BILIRUBIN,TOTAL 0.5 mg/dL (0.2-1); TOT PROT 7.8 g/dl (6.4-8.2)
[2022-03-18 13:53] LABS: CALCIUM 9.9 mg/dL (8.5-10.1); CREATININE 0.6 mg/dL (0.55-1.3)
[2022-03-18] MEDS: INSULIN SLIDING SCALE (NOVOLOG) 1 VIAL SQ SCH (17:29)
[2022-03-19] MEDS: guaiFENesin/D-M SUGAR-FREE/ACLHOL-FREE 118 ML BOTTLE PO PRN ×3 (00:46→18:58)
[2022-03-19] MEDS: methylPREDNISolone NA SUCC 40 MG/1 ML VIAL IVPUSH SCH ×3 (02:07→18:50)
[2022-03-19] MEDS: ALBUTEROL SO4 2.5/IPRATROPIUM 0.5 INH SOL 3 ML VIAL.NEB. NEB SCH ×5 (04:15→20:18)
[2022-03-19] MEDS: metFORMIN HCL 500 MG TABLET (FP) PO SCH ×2 (07:01→18:48)
[2022-03-19] MEDS: INSULIN SLIDING SCALE (NOVOLOG) 1 VIAL SQ SCH ×2 (07:02→18:45)
[2022-03-19] MEDS: FAMOTIDINE 20 MG TABLET PO SCH (09:18)
[2022-03-19] MEDS: ENOXAPARIN NA (PORCINE) 40 MG/0.4 ML DISP.SYRIN SQ SCH (09:18)
[2022-03-19] MEDS: CEFTRIAXONE 1 GM in DEXTROSE 5%-WATER - 50 ML IVPB SCH (09:19)
[2022-03-19] MEDS: DOXYCYCLINE INJECTION 100 MG in DEXTROSE 5%-WATER 100 ML IVPB SCH ×2 (09:19→21:48)
[2022-03-20] MEDS: ALBUTEROL SO4 2.5/IPRATROPIUM 0.5 INH SOL 3 ML VIAL.NEB. NEB SCH ×6 (00:05→20:05)
[2022-03-20] MEDS: methylPREDNISolone NA SUCC 40 MG/1 ML VIAL IVPUSH SCH ×3 (02:17→17:39)
[2022-03-20] MEDS: INSULIN SLIDING SCALE (NOVOLOG) 1 VIAL SQ SCH ×2 (06:17→17:40)
[2022-03-20] MEDS: metFORMIN HCL 500 MG TABLET (FP) PO SCH ×2 (06:17→17:39)
[2022-03-20] MEDS: guaiFENesin/D-M SUGAR-FREE/ACLHOL-FREE 118 ML BOTTLE PO PRN ×2 (06:17→21:15)
[2022-03-20] MEDS: CEFTRIAXONE 1 GM in DEXTROSE 5%-WATER - 50 ML IVPB SCH (09:38)
[2022-03-20] MEDS: DOXYCYCLINE INJECTION 100 MG in DEXTROSE 5%-WATER 100 ML IVPB SCH (09:39)
[2022-03-20] MEDS: FAMOTIDINE 20 MG TABLET PO SCH (09:40)
[2022-03-20] MEDS: ENOXAPARIN NA (PORCINE) 40 MG/0.4 ML DISP.SYRIN SQ SCH (09:40)
[2022-03-20 10:36] LABS: CALCIUM 9.2 mg/dL (8.5-10.1)
[2022-03-20 10:37] LABS: ALBUMIN 3.6 g/dl (3.4-5.0); BLOOD UREA NITROGEN 20.2 mg/dL (7-18)
[2022-03-20 10:40] LABS: CREATININE 0.8 mg/dL (0.55-1.3)
[2022-03-20 10:41] LABS: TOT PROT 7.6 g/dl (6.4-8.2)
[2022-03-20 10:42] LABS: BILIRUBIN,TOTAL 0.7 mg/dL (0.2-1)
[2022-03-20] MEDS ORDERED: DOXYCYCLINE INJECTION 100 MG in DEXTROSE 5%-WATER 100 ML IVPB ONE (22:39)
[2022-03-21] MEDS: methylPREDNISolone NA SUCC 40 MG/1 ML VIAL IVPUSH SCH ×3 (01:49→16:59)
[2022-03-21] MEDS: ALBUTEROL SO4 2.5/IPRATROPIUM 0.5 INH SOL 3 ML VIAL.NEB. NEB SCH ×6 (04:00→20:20)
[2022-03-21] MEDS: INSULIN SLIDING SCALE (NOVOLOG) 1 VIAL SQ SCH ×2 (06:30→16:55)
[2022-03-21] MEDS: metFORMIN HCL 500 MG TABLET (FP) PO SCH ×2 (06:30→16:55)
[2022-03-21] MEDS: CEFTRIAXONE 1 GM in DEXTROSE 5%-WATER - 50 ML IVPB SCH (10:48)
[2022-03-21] MEDS: FAMOTIDINE 20 MG TABLET PO SCH (10:48)
[2022-03-21] MEDS: ENOXAPARIN NA (PORCINE) 40 MG/0.4 ML DISP.SYRIN SQ SCH (10:48)
[2022-03-21] MEDS: guaiFENesin/D-M SUGAR-FREE/ACLHOL-FREE 118 ML BOTTLE PO PRN (10:48)
[2022-03-22] MEDS: ALBUTEROL SO4 2.5/IPRATROPIUM 0.5 INH SOL 3 ML VIAL.NEB. NEB SCH ×7 (00:08→23:12)
[2022-03-22] MEDS: methylPREDNISolone NA SUCC 40 MG/1 ML VIAL IVPUSH SCH ×3 (02:15→17:07)
[2022-03-22] MEDS: metFORMIN HCL 500 MG TABLET (FP) PO SCH ×2 (06:47→17:07)
[2022-03-22] MEDS: INSULIN SLIDING SCALE (NOVOLOG) 1 VIAL SQ SCH ×2 (06:48→17:13)
[2022-03-22] MEDS: FAMOTIDINE 20 MG TABLET PO SCH (10:38)
[2022-03-22] MEDS: ENOXAPARIN NA (PORCINE) 40 MG/0.4 ML DISP.SYRIN SQ SCH (10:38)
[2022-03-22] MEDS: guaiFENesin/D-M SUGAR-FREE/ACLHOL-FREE 118 ML BOTTLE PO PRN ×2 (10:40→21:27)
[2022-03-22] MEDS: CEFTRIAXONE 1 GM in DEXTROSE 5%-WATER - 50 ML IVPB SCH (11:10)
[2022-03-23] MEDS: methylPREDNISolone NA SUCC 40 MG/1 ML VIAL IVPUSH SCH ×3 (01:54→17:17)
[2022-03-23] MEDS: ALBUTEROL SO4 2.5/IPRATROPIUM 0.5 INH SOL 3 ML VIAL.NEB. NEB SCH ×3 (04:30→11:17)
[2022-03-23] MEDS: metFORMIN HCL 500 MG TABLET (FP) PO SCH ×2 (06:51→17:17)
[2022-03-23] MEDS: INSULIN SLIDING SCALE (NOVOLOG) 1 VIAL SQ SCH ×2 (06:52→17:17)
[2022-03-23] MEDS: CEFTRIAXONE 1 GM in DEXTROSE 5%-WATER - 50 ML IVPB SCH (10:26)
[2022-03-23] MEDS: ENOXAPARIN NA (PORCINE) 40 MG/0.4 ML DISP.SYRIN SQ SCH (10:26)
[2022-03-23] MEDS: FAMOTIDINE 20 MG TABLET PO SCH (10:26)
[2022-03-24] MEDS: methylPREDNISolone NA SUCC 40 MG/1 ML VIAL IVPUSH SCH ×2 (02:02→11:05)
[2022-03-24] MEDS: INSULIN SLIDING SCALE (NOVOLOG) 1 VIAL SQ SCH (06:08)
[2022-03-24] MEDS: metFORMIN HCL 500 MG TABLET (FP) PO SCH (06:11)
[2022-03-24 06:49] VITALS: RESP 18
[2022-03-24 09:56] VITALS: BP 124/85; PULSE 78; TEMP 97.8
[2022-03-24] MEDS: FAMOTIDINE 20 MG TABLET PO SCH (11:04)
[2022-03-24] MEDS: ENOXAPARIN NA (PORCINE) 40 MG/0.4 ML DISP.SYRIN SQ SCH (11:05)
[2022-03-24] MEDS: CEFTRIAXONE 1 GM in DEXTROSE 5%-WATER - 50 ML IVPB SCH (11:05)
== END 2022-03-24 14:50 | disposition home or self-care (01) | DRG 194 ==
LOC: JER 12:26 → JERBED 16:19 → J5S 22:08
PROVIDERS: ADMIT Internal Medicine; ATTEND Internal Medicine
DX: J18.9 Pneumonia, unspecified organism (principal); J98.11 Atelectasis; Z68.41 Body mass index [BMI] 40.0-44.9, adult; E66.01 Morbid (severe) obesity due to excess calories; R09.02 Hypoxemia
CPT/HCPCS: 0241U-QW; 36415; 36600; 71045-TC-FY; 71275-TC; 80053; 82803; 82962; 83735; 83880; 84100; 84439; 84443; 84484; 84703; 85025; 87070; 87205; 87899; 93005; 93010; 94010; 94640; 94660; 94761; 97116-GP; 97161-GP; 99285-25; Q9967